=== PATIENT | female | born 1940 | race Caucasian/White ===

== ENCOUNTER 2022-02-02 12:50 | Inpatient (IN) ==
[2022-02-02] MEDS ORDERED: 0.9 % SODIUM CHLORIDE 1,000 ML IV ONE (12:54)
[2022-02-02] MEDS ORDERED: LACTATED RINGERS 1,000 ML IV ONE (13:16)
--- NOTE | 2022-02-02 13:22 | Emergency Department Note ---
Back Pain HPI <Jimmie Parekh PA-C - Last Filed: 02/02/22 15:03> General Chief Complaint: Back Pain/Injury Stated Complaint: back pain Time Seen by Provider: 02/02/22 12:52 Source: patient Limitations: no limitations History of Present Illness HPI Narrative: Narrative: 81-year-old female with a history of osteoporosis with multiple pathologic compression fractures, hypertension, CHF, A. fib with RVR, COPD, GERD, opioid- induced constipation and sleep apnea. She states over the last week she was increasingly constipated. She was drinking an oral enema solution that was cleaning her out. She states she has not been drinking of water and her pain has been so severe she has not been eating. She was scheduled for vertebroplasty yesterday but she was in so much pain she could not make it to the appointment. She went for her reschedule appointment for vertebroplasty today with Dr. Steele. When she arrived Dr. Acosta said she looked very dehydrated and ill-appearing and he did not feel like she would be able to survive the procedure and she would need IV fluids and reevaluation. She is in considerable pain at this time. She says she is in so much pain that if this procedure does not get done that she will take her own life. She says life is not worth living in this kind of pain. She is objectively miserable. She denies fever, chills, nausea, vomiting, chest pain, chest pressure, abdominal p ain, dysuria, urgency, frequency, loss of bowel or bladder or lower extremity weakness. She does not have sciatic-like pain it is just throbbing miserable pain in her low back. She states she is no longer constipated and she is had many accidents after drinking oral solution. Related Data Home Medications Medication Instructions Recorded Confirmed aspirin 81 mg tablet,delayed 81 mg PO QDAY 12/18/21 02/02/22 release albuterol sulfate 90 mcg/actuation 1 inh INHALATION ONCE 01/06/22 02/02/22 aerosol inhaler apixaban 5 mg tablet (Eliquis) 5 mg PO BID 01/06/22 02/02/22 prednisone 10 mg tablet See Rx Instructions PO QDAY tab 01/28/22 02/02/22 docusate sodium 100 mg capsule 100 mg PO BID 02/02/22 02/02/22 (Colace) metoprolol tartrate 50 mg tablet 1.5 tab PO BID 02/02/22 02/02/22 sennosides 8.6 mg tablet (Grace-luis) 8.6 mg PO BID 02/02/22 02/02/22 Previous Rx's Medication Instructions Recorded Bipap mask and supplies #1 ea 04/21/20 Nebulizer and supplies #1 ea 04/21/20 ipratropium 0.5 mg-albuterol 3 mg See Rx Instructions .ROUTE 07/07/21 (2.5 mg base)/3 mL nebulization .COMPLEX #1080 unknown measurement soln unit code: ml spironolactone 25 mg tablet 50 mg PO QAM #180 tab 11/24/21 Home care Hospital bed #1 ea 01/05/22 calcitonin (salmon) 200 1 spray INTRANASAL (ALT) ONCE #3.7 01/21/22 unit/actuation nasal spray ml hydrocodone 10 mg-acetaminophen 1 tab PO Q4-6H PRN #180 tab 01/21/22 325 mg tablet Allergies Allergy/AdvReac Type Severity Reaction Status Date / Time codeine Allergy Intermediate Nausea Verified 02/02/22 12:54 morphine Allergy Intermediate Nausea Verified 02/02/22 12:54 Review of Systems <Jimmie Parekh PA-C - Last Filed: 02/02/22 15:03> ROS ROS Narrative: Narrative: All systems ED: reviewed and negative except as stated. PFSH <Jimmie Parekh PA-C - Last Filed: 02/02/22 15:03> Narrative Patient History Narrative: Narrative: Medical/Surgical/Family History All Active Problems (Updated 02/02/22 @ 15:31 by Panda Harmon MD) Compression fracture of lumbar vertebra (Acute) Intractable back pain (Acute) Dehydration (Acute) Malnutrition (Acute) Age-related osteoporosis with current pathological fracture, vertebra(e), initial encounter for fracture (Acute) Acute exacerbation of chronic low back pain (Acute) Hypertension (Chronic) CHF (congestive heart failure) (Acute) Atrial fibrillation with rapid ventricular response (Acute) Congestive heart failure (Acute) Compression fracture of L5 vertebra (Acute) Hepatitis A (Chronic) Heart palpitations (Chronic) SOB (shortness of breath) (Chronic) Sacral pain (Chronic) Other low back pain (Chronic) Spinal stenosis (Chronic) Back pain (Chronic) Anterolisthesis of lumbosacral spine (Chronic) Chest wall contusion (Chronic) Neck Pain (Chronic) Muscle spasm of back (Chronic) Low back strain (Chronic) Initial Medicare annual wellness visit (Chronic) GERD (gastroesophageal reflux disease) (Chronic) Duodenal bulb ulcer (Chronic) Gastric ulcer (Chronic) Flank pain (Chronic) Drug induced constipation (Chronic) Fatigue (Chronic) Hyperlipidemia (Chronic) Chronic bronchitis with COPD (chronic obstructive pulmonary disease) (Chronic) Iliac artery stenosis, right (Chronic) Atherosclerosis of lower extremity with claudication (Chronic) Symptomatic stenosis of right carotid artery (Chronic 06/14/16) Ovarian mass, right (Chronic) Sleep apnea (Chronic) Diverticulosis (Chronic) Peripheral vascular disease (Chronic) COPD (chronic obstructive pulmonary disease) (Chronic) Medical History Age-related osteoporosis with current pathological fracture, vertebra(e), initial encounter for fracture Anterolisthesis of lumbosacral spine Atherosclerosis of lower extremity with claudication Back pain Chest wall contusion Chronic bronchitis with COPD (chronic obstructive pulmonary disease) COPD (chronic obstructive pulmonary disease) Diverticulosis Drug induced constipation Duodenal bulb ulcer Fatigue Flank pain Gastric ulcer GERD (gastroesophageal reflux disease) Heart palpitations Hepatitis A Hyperlipidemia Hypertension Iliac artery stenosis, right severe Low back strain Muscle spasm of back Neck Pain Other low back pain Ovarian mass, right with elevated OVL 1 Peripheral vascular disease Sacral pain Sleep apnea SOB (shortness of breath) Spinal stenosis Symptomatic stenosis of right carotid artery (06/14/16) Surgical History History of angioplasty (11/01/16) Right external iliac artery and stent placement. Pelvis angiogram and bilateral common femoral artery access under US guidance History of colonoscopy (08/19/14) History of hysterectomy History of knee surgery History of right-sided carotid endarterectomy Hx of cataract surgery Family History Brother COPD (chronic obstructive pulmonary disease) Mother Pneumonia Social History Smoking Status: Current some day smoker Alcohol Intake Frequency: does not drink Substance Use: does not use Exam <Jimmie Parekh PA-C - Last Filed: 02/02/22 15:03> Narrative Narrative: Narrative: Gen: Patient is ill and dehydrated appearing complaining of back pain Eyes: PERRL, mild conjunctival irritation, and symmetrical lids. Sclerae non icteric HENMT: Normocephalic Atraumatic head, external nose and ears. Severely dry MM. CVS: +S1/S2, No murmurs or gallops. Radial pulses 2+ and equal bilat. No swelling RESP: Unlabored respiratory effort . Clear to auscultation bilaterally (CTAB). No noted wheezes rales or ronchi. GI: Nontender/Nondistended (NTND), No focal tenderness MSK: Extremities w/o deformity or ttp. No cyanosis or clubbing. Back: Severe low back pain Skin: Dry with significant skin turgor. No rashes or lesions . Cap refill less than 2. Neuro: Patient denies bowel or bladder incontinence or saddle anesthesia, she can extend legs from the wheelchair and plantar and dorsiflex. Psych: Awake, Alert, & Oriented (AAO) x3. Patient is miserable and in severe pain. Depressed affect. General Limitations: no limitations Course <Jimmie Parekh PA-C - Last Filed: 02/02/22 15:03> Vital Signs Vital signs: Vital Signs Temperature 98.8 F 02/02/22 12:50 Pulse Rate 111 H 02/02/22 12:50 Respiratory Rate 16 02/02/22 12:50 Blood Pressure 151/69 02/02/22 12:50 Pulse Oximetry (%) 93 02/02/22 12:50 Temperature 97.0 F 02/03/22 07:17 Pulse Rate 84 02/03/22 07:17 Respiratory Rate 20 02/03/22 07:17 Blood Pressure 150/61 02/03/22 07:17 Pulse Oximetry (%) 98 02/03/22 07:17 MDM <Jimmie Parekh PA-C - Last Filed: 02/02/22 15:03> [facility] Narrative Medical decision making narrative: Narrative: Patient is in such severe pain that she wants to take her own life. She is dehydrated and has not been eating or drinking. She is scheduled for vertebroplasty which was canceled today due to her dehydration and current con dition. She will be evaluated with a chest x-ray, EKG, CBC, CMP and a UA at this time. We will give her Dilaudid for pain and IV fluids. She will likely need to be admitted for pain control. CBC: Macrocytosis otherwise unremarkable CMP: Decreased protein otherwise unremarkable EKG: Atrial fibrillation significant artifact from patient shaking at a rate of 109 bpm, skulls ST depression in the lateral leads which is likely due to artifact, final believe this is due to acute ischemia at this time. Chest x-ray: Moderate to severe emphysema UA: Spoke with Dr. Harmon on the phone who graciously agreed to admit the patient, rehydrate, pain control and give nutrition and hopefully schedule her with Dr. Steele for the vertebroplasty and placement to senior living so she can recover before she goes home. Lab Data Result diagrams: 02/02/22 13:16 02/02/22 13:16 Labs: Lab Results 02/02/22 02/02/22 Range/Units 13:16 13:16 WBC 9.9 (4.5-11.0) K/mcL RBC 3.55 L (3.59-5.38) M/mcL Hgb 11.5 (11.2-15.7) g/dL Hct 36.3 (34.1-44.9) % MCV 102.3 H (80.0-100.0) fL MCH 32.4 (26.0-34.0) pg MCHC 31.7 (31.0-36.0) g/dL RDW 17.2 H (11.5-14.5) % Plt Count 266 (140-440) K/mcL MPV 8.9 (7.4-10.4) fL Immature Gran % (Auto) 1.0 H (0.0-0.5) % Neut % (Auto) 87.8 H (38.0-78.0) % Lymph % (Auto) 4.5 L (15.5-49.0) % [place] % (Auto) 6.3 (1.0-12.0) % Eos % (Auto) 0.2 (0.0-7.0) % Baso % (Auto) 0.2 (0.0-2.0) % Lymph # (Auto) 0.45 L (1.50-4.80) K/mcL [place] # (Auto) 0.62 (0.10-0.90) K/mcL Eos # (Auto) 0.02 (0.00-0.70) K/mcL Baso # (Auto) 0.02 (0.00-0.30) K/mcL Immature Gran # 0.10 H (0.00-0.05) K/mcl Absolute Neutrophils 8.79 H (1.80-8.00) K/mcL Sodium 143 (133-145) mmol/L Potassium 3.5 (3.3-5.1) mmol/L Chloride 103 (96-108) mmol/L Carbon Dioxide 28 (22-30) mmol/L Anion Gap 12.0 (8.0-16.0) BUN 9 (8-23) mg/dL Creatinine 0.9 (0.6-1.1) mg/dL GFR Calculation 61 Glucose 129 H (70-105) mg/dL Calcium 9.2 (8.6-10.4) mg/dL Total Bilirubin 0.9 (0.1-1.0) mg/dL AST 11 (<32) U/L ALT 14 (<40) U/L Alkaline Phosphatase 65 (39-117) U/L Total Protein 5.5 L (5.9-8.4) gm/dL Albumin 3.6 (3.2-5.2) gm/dL Globulin 1.9 L (2.2-3.7) gm/dL Albumin/Globulin Ratio 1.9 (1.0-2.3) Discharge Plan Patient/Caregiver Discharge Instructions Pt seen by EXTERN/PA only: Yes Clinical Impression: Intractable back pain, Dehydration, Malnutrition Patient Disposition: Xfer As Inpt ([facility]) Condition: Fair Discharge Date/Time: 02/02/22 15:34
[2022-02-02] MEDS: HYDROmorphone 0.5 MG/0.5 ML SYRINGE IV PRN ×5 (13:27→21:16)
[2022-02-02 13:59] LABS: Basophils # (Auto) 0.02 K/mcL (0.00-0.30); Basophils % (Auto) 0.2 % (0.0-2.0); Eosinophils # (Auto) 0.02 K/mcL (0.00-0.70); Eosinophils % (Auto) 0.2 % (0.0-7.0); Hematocrit 36.3 % (34.1-44.9); Hemoglobin 11.5 g/dL (11.2-15.7); Lymphocytes # (Auto) 0.45 K/mcL (1.50-4.80); Lymphocytes % (Auto) 4.5 % (15.5-49.0); Mean Cell Volume 102.3 fL (80.0-100.0); Mean Corpuscular HGB Conc 31.7 g/dL (31.0-36.0); Mean Platelet Volume 8.9 fL (7.4-10.4); Monocytes # (Auto) 0.62 K/mcL (0.10-0.90); Monocytes % (Auto) 6.3 % (1.0-12.0); Neutrophils % (Auto) 87.8 % (38.0-78.0); Platelet Count 266 K/mcL (140-440); RBC 3.55 M/mcL (3.59-5.38); Red Cell Distribution Width 17.2 % (11.5-14.5); WBC 9.9 K/mcL (4.5-11.0)
[2022-02-02 14:18] LABS: ALT/SGPT 14 U/L (<40); AST/SGOT 11 U/L (<32); Albumin 3.6 gm/dL (3.2-5.2); Albumin/Globulin Ratio 1.9 (1.0-2.3); Alkaline Phosphatase 65 U/L (39-117); Bilirubin,Total 0.9 mg/dL (0.1-1.0); Blood Urea Nitrogen 9 mg/dL (8-23); Calcium 9.2 mg/dL (8.6-10.4); Carbon Dioxide 28 mmol/L (22-30); Chloride 103 mmol/L (96-108); Globulin 1.9 gm/dL (2.2-3.7); Glomerular Filtration Rate 61; Glucose 129 mg/dL (70-105)
--- NOTE | 2022-02-02 14:38 | XRay Report ---
HISTORY: Chest and back pain FINDINGS: Patient has moderately severe emphysema. This is better demonstrated on recent chest CT done on 12/21/21. No evidence of pneumonia or pulmonary mass. No congestive heart failure or pleural effusion are present. The heart is mildly enlarged. Some of the apparent cardiomegaly is due to magnification by portable technique and prominent epicardial fat pad seen on the prior chest CT. The aorta is normal in caliber and there is no widening of the mediastinum. IMPRESSION: Moderately severe emphysema Mild cardiomegaly Interpreted and Authenticated by: Dipak Gore 02/02/22
--- NOTE | 2022-02-02 15:33 | Internal Med History&Physical ---
HPI History of Present Illness Patient information: Note initiated : 02/02/22 at 3:24 pm Service Date, if different from initiated Date: [] Patient: Renay Mata a 81 y/o F admitted on for back pain. Chief Complaint: [back pain] Chief complaint: back pain History of present illness: Ms. Mata is a 81 year old F history of osteoporosis with multiple lumbar spinal compression fracture, CHF, COPD, atrial fibrillation, essential hypertensions, GERD, obstructive sleep apnea on BiPAP, presenting with chronic back pain. She was supposed to have an appointment with Dr. Pineda anesthesiologist for vertebroplasty, where he thought that the patient was too dehydrated and was in a fair best shape to receive the procedures. Instead, he referred patients to our ED for further evaluations. He would like the patient to be rehydrated and for better pain control and have the procedures to be scheduled for potentially tomorrow. Patient is currently company of 10 out of 10 sharp constant lower back pain. She also is complaining of constipation with last bowel movement 2 days ago. She denies any difficulty urinating. She has a poor appetite and is also feeling generally weak. Labs within normal limits. A recent CT of the lumbar spine showing multiple lumbar spinal cord compression fractures. Constitutional Constitutional: Absent chills, excessive sweating, fatigue, fever(s) or weakness EENT Eyes: Absent blurry vision, change in vision, loss of vision or other visual disturbances Ears: Absent decreased hearing or tinnitus Nose, mouth and throat: Absent abnormal hearing, dry mouth, headache(s), nasal congestion or sore throat Cardiovascular Cardiovascular: Absent chest pain, chest pain at rest, edema, irregular heart rhythm or palpatations Respiratory Respiratory: Absent cough, dyspnea or wheezing Gastrointestinal Gastrointestinal: Present constipation; Absent abdominal pain, diarrhea, nausea or vomiting Musculoskeletal Musculoskeletal: Present back pain; Absent deformity, limited range of motion, muscle cramps, muscle weakness or numbness Integumentary Integumentary: Absent lesions, rash or wounds Neurological Neurological: Absent focal weakness, headache(s) or numbness Psychiatric Psychiatric: Absent anxiety, depression or hallucinations PFSH PFSH All Active Problems (Updated 02/02/22 @ 15:31 by Panda Harmon MD) Compression fracture of lumbar vertebra (Acute) Intractable back pain (Acute) Dehydration (Acute) Malnutrition (Acute) Age-related osteoporosis with current pathological fracture, vertebra(e), initial encounter for fracture (Acute) Acute exacerbation of chronic low back pain (Acute) Hypertension (Chronic) CHF (congestive heart failure) (Acute) Atrial fibrillation with rapid ventricular response (Acute) Congestive heart failure (Acute) Compression fracture of L5 vertebra (Acute) Hepatitis A (Chronic) Heart palpitations (Chronic) SOB (shortness of breath) (Chronic) Sacral pain (Chronic) Other low back pain (Chronic) Spinal stenosis (Chronic) Back pain (Chronic) Anterolisthesis of lumbosacral spine (Chronic) Chest wall contusion (Chronic) Neck Pain (Chronic) Muscle spasm of back (Chronic) Low back strain (Chronic) Initial Medicare annual wellness visit (Chronic) GERD (gastroesophageal reflux disease) (Chronic) Duodenal bulb ulcer (Chronic) Gastric ulcer (Chronic) Flank pain (Chronic) Drug induced constipation (Chronic) Fatigue (Chronic) Hyperlipidemia (Chronic) Chronic bronchitis with COPD (chronic obstructive pulmonary disease) (Chronic) Iliac artery stenosis, right (Chronic) Atherosclerosis of lower extremity with claudication (Chronic) Symptomatic stenosis of right carotid artery (Chronic 06/14/16) Ovarian mass, right (Chronic) Sleep apnea (Chronic) Diverticulosis (Chronic) Peripheral vascular disease (Chronic) COPD (chronic obstructive pulmonary disease) (Chronic) Medical History Age-related osteoporosis with current pathological fracture, vertebra(e), initial encounter for fracture Anterolisthesis of lumbosacral spine Atherosclerosis of lower extremity with claudication Back pain Chest wall contusion Chronic bronchitis with COPD (chronic obstructive pulmonary disease) COPD (chronic obstructive pulmonary disease) Diverticulosis Drug induced constipation Duodenal bulb ulcer Fatigue Flank pain Gastric ulcer GERD (gastroesophageal reflux disease) Heart palpitations Hepatitis A Hyperlipidemia Hypertension Iliac artery stenosis, right severe Low back strain Muscle spasm of back Neck Pain Other low back pain Ovarian mass, right with elevated OVL 1 Peripheral vascular disease Sacral pain Sleep apnea SOB (shortness of breath) Spinal stenosis Symptomatic stenosis of right carotid artery (06/14/16) Surgical History History of angioplasty (11/01/16) Right external iliac artery and stent placement. Pelvis angiogram and bilateral common femoral artery access under US guidance History of colonoscopy (08/19/14) History of hysterectomy History of knee surgery History of right-sided carotid endarterectomy Hx of cataract surgery Family History Brother COPD (chronic obstructive pulmonary disease) Mother Pneumonia Social History marital status: education level: college occupational status: retired smoking status: Former smoker quit date: 08/08/15 pack-years: 60 alcohol intake frequency: does not drink substance use type: does not use seatbelt use: always MEDS/ALLERGIES Home Medications and Allergies Home Medications Medication Instructions Recorded Confirmed Type Bipap mask and supplies #1 ea 04/21/20 01/21/22 Rx Nebulizer and supplies #1 ea 04/21/20 01/21/22 Rx ipratropium 0.5 mg-albuterol 3 mg See Rx Instructions .ROUTE 07/07/21 01/21/22 Rx (2.5 mg base)/3 mL nebulization .COMPLEX #1080 unknown measurement soln unit code: ml ondansetron 4 mg disintegrating 4 mg PO Q8H PRN #40 tab 11/16/21 01/21/22 Rx tablet spironolactone 25 mg tablet 50 mg PO QAM #180 tab 11/24/21 01/21/22 Rx aspirin 81 mg tablet,delayed 81 mg PO QDAY 12/18/21 01/21/22 History release [facility] Hospital bed #1 ea 01/05/22 01/21/22 Rx albuterol sulfate 90 mcg/actuation 1 inh INHALATION ONCE 01/06/22 01/21/22 History aerosol inhaler apixaban 5 mg tablet (Eliquis) 5 mg PO BID 01/06/22 01/21/22 History simvastatin 20 mg tablet 20 mg PO QHS #90 tab 01/14/22 01/21/22 Rx famotidine 20 mg tablet 20 mg PO QDAY #30 tab 01/15/22 01/21/22 Rx calcitonin (salmon) 200 1 spray INTRANASAL (ALT) ONCE #3.7 01/21/22 01/21/22 Rx unit/actuation nasal spray ml hydrocodone 10 mg-acetaminophen 1 tab PO Q4-6H PRN #180 tab 01/21/22 01/21/22 Rx 325 mg tablet lisinopril 5 mg tablet 5 mg PO QDAY tab 01/28/22 01/28/22 History magnesium hydroxide 400 mg (170 mg mg PO 01/28/22 01/28/22 History magnesium) chewable tablet prednisone 10 mg tablet See Rx Instructions PO QDAY tab 01/28/22 History Allergies Allergy/AdvReac Type Severity Reaction Status Date / Time codeine Allergy Intermediate Nausea Verified 02/02/22 12:54 morphine Allergy Intermediate Nausea Verified 02/02/22 12:54 EXAM Constitutional Vitals: Temp Pulse Resp BP Pulse Ox 37.1 C 109 H 16 125/58 97 02/02/22 12:50 02/02/22 14:25 02/02/22 12:50 02/02/22 15:01 02/02/22 14:25 General appearance: cooperative, disheveled and moderate distress Head Head exam: Present atraumatic and normocephalic Eye Eye exam: Present EOMI and PERRL ENT ENT exam: Present mucous membranes moist, normal exam and normal external ear exam Neck Neck exam: Present normal inspection; Absent lymphadenopathy, tenderness or thyromegaly Respiratory Respiratory exam: Absent accessory muscle use, respiratory distress or wheezes Cardiovascular Cardiovascular exam: Present irregular rhythm; Absent JVD GI/Abdominal GI/Abdominal exam: Present normal bowel sounds and soft; Absent organomegaly or tenderness Extremities Exam Extremities exam: Present full ROM, normal capillary refill and normal inspection; Absent tenderness Back Exam Back exam: Present normal inspection and vertebral tenderness Neurological Exam Neurological exam: Present alert, CN II-XII intact and oriented X3; Absent motor sensory deficit Psychiatric Psychiatric exam: Present normal affect and normal mood; Absent anxious or depressed Skin Skin exam: Present dry and intact DATA Data Completed and Pending Labs: Labs from last 24 hours 02/02/22 02/02/22 13:16 13:16 WBC 9.9 RBC 3.55 L Hgb 11.5 Hct 36.3 MCV 102.3 H MCH 32.4 MCHC 31.7 RDW 17.2 H Plt Count 266 MPV 8.9 Immature Gran % (Auto) 1.0 H Neut % (Auto) 87.8 H Lymph % (Auto) 4.5 L [place] % (Auto) 6.3 Eos % (Auto) 0.2 Baso % (Auto) 0.2 Lymph # (Auto) 0.45 L [place] # (Auto) 0.62 Eos # (Auto) 0.02 Baso # (Auto) 0.02 Immature Gran # 0.10 H Absolute Neutrophils 8.79 H Sodium 143 Potassium 3.5 Chloride 103 Carbon Dioxide 28 Anion Gap 12.0 BUN 9 Creatinine 0.9 GFR Calculation 61 Glucose 129 H Calcium 9.2 Total Bilirubin 0.9 AST 11 ALT 14 Alkaline Phosphatase 65 Total Protein 5.5 L Albumin 3.6 Globulin 1.9 L Albumin/Globulin Ratio 1.9 A/P Assessment and plan (1) CHF (congestive heart failure): Status: Acute (2) Atrial fibrillation with rapid ventricular response: Status: Acute (3) Compression fracture of lumbar vertebra: Status: Acute (4) GERD (gastroesophageal reflux disease): Status: Chronic Qualifiers: Esophagitis presence: without esophagitis Qualified Code(s): K21.9 - Gastro-esophageal reflux disease without esophagitis (5) COPD (chronic obstructive pulmonary disease): Status: Chronic Qualifiers: COPD type: unspecified COPD Qualified Code(s): J44.9 - Chronic obstructive pulmonary disease, unspecified; J44.9 - Chronic obstructive pulmonary disease, unspecified; J44.9 - Chronic obstructive pulmonary disease, unspecified; J44.9 - Chronic obstructive pulmonary disease, unspecified (6) Hypertension: Status: Chronic Qualifiers: Hypertension type: essential hypertension Qualified Code(s): I10 - Essential (primary) hypertension; I10 - Essential (primary) hypertension; I10 - Essential (primary) hypertension (7) Sleep apnea: Status: Chronic Qualifiers: Sleep apnea type: obstructive Qualified Code(s): G47.33 - Obstructive sleep apnea (adult) (pediatric); G47.33 - Obstructive sleep apnea (adult) (pediatric) Narrative A/P Narrative: Assessment and Plans: 1. Multiple lumbar compression fracture secondary to osteoporosis: Observation med surg Consult Dr. Pineda for potential vertebroplasty tomorrow 02/03 Physical therapy Occupational therapy Toradol PRN mild pain Hamler PRN moderate pain Dilaudid IV PRN severe pain NPO after midnight, NS@100cc/hr 2. h/o CHF: Hold Aldactone, instead give NS@/100cc/hr in preparation for the vertebroplasty 3. h/o COPD: DuoNEB NEB PRN wheezing 4. Permanent atrial fibrillation: Currently rate controlled Hold Eliquis in preparation for the vertebroplasty 5. YELITZA on BiPAP: Continue BiPAP at night while sleeping 6. Essential hypertension: Lisinopril Hold Aldactone, instead give NS@/100cc/hr in preparation for the vertebroplasty 7. GERD: Continue Famotidine PO GI ppx: Continue Famotidine PO DVT ppx: SCDs Code statu: Full Prognosis: stable Disposition: observation med surg; PT OT Time Spent With Patient Time: Total time spent is greater than 50% in coordination of care (as documented) at patient's floor/unit and/or counseling patient: Total time spent with greater than 50% in coordination of care (as documented) at patient's floor/unit and/or counseling patient:: 35 - 50 minutes
[2022-02-02] MEDS ORDERED: IPRATROPIUM/ALBUTEROL 3 ML AMPUL.NEB NEB SCH (15:55)
[2022-02-02] MEDS ORDERED: ACETAMINOPHEN 325 MG TABLET PO PRN (15:55)
[2022-02-02] MEDS ORDERED: traZODone HCL 50 MG TABLET PO PRN (15:55)
[2022-02-02] MEDS ORDERED: ALBUTEROL SULFATE 200 PUFF INHALER INH PRN (15:55)
[2022-02-02] MEDS ORDERED: ONDANSETRON 4 MG/2 ML VIAL IV PRN (15:55)
[2022-02-02] MEDS: 0.9 % SODIUM CHLORIDE 1,000 ML IV SCH (16:05)
[2022-02-02] MEDS: IPRATROPIUM/ALBUTEROL 3 ML AMPUL.NEB NEB PRN ×2 (17:59→21:29)
[2022-02-02] MEDS ORDERED: hydrALAZINE 20 MG/ML VIAL IV PRN (19:53)
[2022-02-02] MEDS: 0.9 % SODIUM CHLORIDE 10 ML SYRINGE IV SCH (20:45)
[2022-02-02] MEDS ORDERED: [UNRECOGNIZED DRUG - OTHER] INTRANASAL SCH (21:00)
[2022-02-02 22:13] LABS: Appearance,Urine HAZY (Clear); Bilirubin,Urine Negative (Negative); Color,Urine YELLOW; Culture Indicated,Urine No; Glucose,Urine (UA) Negative (Negative); Ketones,Urine 5 mg/dL (Negative); Leukocyte Esterase,Urine Negative /uL (Negative); Mucus,Urine MOD /hpf; Nitrate,Urine Negative (Negative); Protein,Urine Negative (Negative); Urine Blood Negative (Negative); Urine Hyaline Cast 18 /lph (0-2); Urine RBC < 1 /hpf (0-3); Urine Squamous Epithelial Cell 0 /hpf (0-4); Urine WBC 4 /hpf (0-4); Urobilinogen,Urine Negative
[2022-02-02] MEDS: METOPROLOL TARTRATE 50 MG TABLET PO SCH (22:41)
[2022-02-02] MEDS: HYDROcodone/APAP 10/325MG TABLET PO PRN (22:41)
[2022-02-02] MEDS: SIMVASTATIN 20 MG TABLET PO SCH ×2 (22:41→22:49)
[2022-02-02] MEDS: DOCUSATE SODIUM 100 MG CAPSULE PO SCH (22:42)
[2022-02-02] MEDS: SENNOSIDES 1 TABLET PO SCH (22:42)
[2022-02-02] MEDS ORDERED: BACLOFEN 10 MG TABLET PO PRN (23:04)
[2022-02-03] MEDS: 0.9 % SODIUM CHLORIDE 1,000 ML IV SCH (02:17)
[2022-02-03] MEDS: IPRATROPIUM/ALBUTEROL 3 ML AMPUL.NEB NEB PRN ×2 (04:12→08:57)
[2022-02-03] MEDS: HYDROmorphone 0.5 MG/0.5 ML SYRINGE IV PRN ×6 (04:29→21:48)
[2022-02-03] MEDS: 0.9 % SODIUM CHLORIDE 10 ML SYRINGE IV SCH ×3 (04:30→21:58)
[2022-02-03] MEDS ORDERED: IPRATROPIUM/ALBUTEROL 3 ML AMPUL.NEB NEB PRN (08:50)
[2022-02-03] MEDS: KETOROLAC 30 MG/ML VIAL IV PRN ×2 (08:55→23:00)
[2022-02-03] MEDS ORDERED: FAMOTIDINE 20 MG TABLET PO SCH (09:00)
[2022-02-03] MEDS ORDERED: LISINOPRIL 5 MG TABLET PO SCH (09:00)
[2022-02-03] MEDS ORDERED: 0.9 % SODIUM CHLORIDE 1,000 ML IV SCH (09:00)
--- NOTE | 2022-02-03 09:03 | Internal Med Progress Note ---
SUBJECTIVE Subjective Patient information: Note initiated : 02/03/22 at 9:02 am Service Date, if different from initiated Date: [] Patient: Renay Mata a 81 y/o F admitted on 02/02/22 for back pain. Chief Complaint: [] Interval history: History of present illness: Ms. Mata is a 81 year old F history of osteoporosis with multiple lumbar spinal compression fracture, CHF, COPD, atrial fibrillation, essential hypertensions, GERD, obstructive sleep apnea on BiPAP, presenting with chronic back pain. She was supposed to have an appointment with Dr. Pineda anesthesiologist for vertebroplasty, where he thought that the patient was too dehydrated and was in a fair best shape to receive the procedures. Instead, he referred patients to our ED for further evaluations. He would like the patient to be rehydrated and for better pain control and have the procedures to be scheduled for potentially tomorrow. Patient is currently company of 10 out of 10 sharp constant lower back pain. She also is complaining of constipation with last bowel movement 2 days ago. She denies any difficulty urinating. She has a poor appetite and is also feeling generally weak. Labs within normal limits. A recent CT of the lumbar spine showing multiple lumbar spinal cord compression fractures. 02/03: Increased work of breathing this morning. Patient was saturating in the 50s on 3 L of oxygen's. We increased her oxygen to 15L/min and her oxygen saturations back to the mid 90s. Subjective ROS not obtained due to patient's clinical situations. Will order ABG and CT angiogram of the chest to rule out pulmonary embolism as a cause of increased work of breathing. We will postpone the vertebroplasty to at least tomorrow. Constitutional Vitals: Vital Signs Temp Pulse Resp BP Pulse Ox 36.1 C 95 H 30 H 150/61 75 L 02/03/22 07:17 02/03/22 08:58 02/03/22 08:58 02/03/22 07:17 02/03/22 08:58 Period Temp Pulse Resp BP Sys/Urban Pulse Ox Last 24 Hr 36.1 C-37.1 C 81-143 14-30 125-170/58-84 75-99 Intake and Output 02/02/22 02/03/22 02/03/22 21:59 05:59 13:59 Intake Total 1000 1120 Output Total 800 1 Balance 200 1119 Weight 66.769 kg Intake & Output: Intake & Output 02/02/22 02/03/22 02/03/22 21:59 05:59 13:59 Intake Total 1000 1120 Output Total 800 1 Balance 200 1119 Weight 66.769 kg Intake: IV 1000 1000 Sodium Chloride 0.9% 1,000 ml @ 1000 100 mls/hr IV .Q10H PO Rx#: [id number] Lactated Ringers 1,000 ml @ 1000 Wide Open IV BOLUS ONE Rx#: [id number] Oral 120 Output: Urine Catheter Amount 800 Straight 800 Void Amount 0 # of times incontinent of urine 1 Other: Urine Appearance Straight Clear Urine Color Straight Bright Yellow Stool Size Smear Small Stool Color Brown Brown Stool Consistency Soft Loose Loose # Voids 0 # Bowel Movements 0 # of times incontinent of 1 1 Bowels General appearance: average body habitus and moderate distress Head Head exam: Present atraumatic and normal inspection Eye Eye exam: Present normal appearance ENT ENT exam: Present mucous membranes moist, normal exam and normal external ear exam Additional comments: Oxygen mask in place Neck Neck exam: Present normal inspection Respiratory Respiratory exam: Present decreased breath sounds Cardiovascular Cardiovascular exam: Present irregular rhythm GI/Abdominal GI/Abdominal exam: Present normal bowel sounds Back Exam Back exam: Present normal inspection and vertebral tenderness Neurological Exam Neurological exam: Present alert and oriented X3 Skin Skin exam: Present intact and warm OBJ DATA Labs CBC & Chem 7: 02/02/22 13:16 02/02/22 13:16 Labs: Abnormal Lab Results 02/02/22 02/02/22 02/02/22 21:15 13:16 13:16 RBC 3.55 L MCV 102.3 H RDW 17.2 H Immature Gran % (Auto) 1.0 H Neut % (Auto) 87.8 H Lymph % (Auto) 4.5 L Lymph # (Auto) 0.45 L Immature Gran # 0.10 H Absolute Neutrophils 8.79 H Glucose 129 H Total Protein 5.5 L Globulin 1.9 L Urine Appearance Hazy A Urine Ketones 5 A Hyaline Casts 18 H Urine Mucus Mod A Meds: Medications Acetaminophen (Acetaminophen 325 Mg Tablet) 650 mg PO Q6HP PRN; Protocol PRN Reason: Per Pain Protocol/Fever > 101 Hydrocodone Bitart/Acetaminophen (Hydrocodone/Apap 10/325mg Tablet) 1 tab PO Q4HP PRN; Protocol PRN Reason: pain Last Admin: 02/02/22 22:41 Dose: 1 tab Documented by: Albuterol Sulfate (Albuterol Sulfate 200 Puff Inhaler) 2 puff INH Q4HP PRN PRN Reason: Shortness Of Breath Albuterol/Ipratropium (Ipratropium/Albuterol 3 Ml Ampul.Neb) 3 ml NEB Q4HRT PRN PRN Reason: Wheezing Last Admin: 02/03/22 08:57 Dose: 3 ml Documented by: Albuterol/Ipratropium (Ipratropium/Albuterol 3 Ml Ampul.Neb) 3 ml NEB ONCE PRN PRN Reason: Shortness Of Breath Baclofen (Baclofen 10 Mg Tablet) 10 mg PO Q6HP PRN PRN Reason: Muscle Spasticity Docusate Sodium (Docusate Sodium 100 Mg Capsule) 100 mg PO BID [facility] Last Admin: 02/02/22 22:42 Dose: Not Given Documented by: Famotidine (Famotidine 20 Mg Tablet) 20 mg PO QDAY [facility] Hydralazine HCl (Hydralazine 20 Mg/Ml Vial) 10 mg IV Q4-6HP PRN PRN Reason: Hypertension Hydromorphone HCl (Hydromorphone 0.5 Mg/0.5 Ml Syringe) 0.5 mg IV Q1HP PRN; Protocol PRN Reason: Per Pain Protocol Last Admin: 02/03/22 08:46 Dose: 0.5 mg Documented by: Sodium Chloride (Sodium Chloride 0.9%) 1,000 mls @ 100 mls/hr IV .Q10H [facility] Last Admin: 02/03/22 02:17 Dose: 100 mls/hr Documented by: Sodium Chloride (Sodium Chloride 0.9%) 1,000 mls @ 0 mls/hr IV .Q0M [facility] Ketorolac Tromethamine (Ketorolac 30 Mg/Ml Vial) 30 mg IV Q6HP PRN; Protocol PRN Reason: Per Pain Protocol Stop: 02/04/22 15:13 Last Admin: 02/03/22 08:55 Dose: 30 mg Documented by: Magnesium Oxide (Magnesium Oxide 400 Mg Tablet) 400 mg PO DAILY [facility] Metoprolol Tartrate (Metoprolol Tartrate 50 Mg Tablet) 75 mg PO BID [facility] Last Admin: 02/02/22 22:41 Dose: 75 mg Documented by: Ondansetron HCl (Ondansetron 4 Mg/2 Ml Vial) 4 mg IV Q6HP PRN PRN Reason: Nausea And Vomiting Senna (Sennosides 1 Tablet) 2 tab PO HS [facility] Last Admin: 02/02/22 22:42 Dose: Not Given Documented by: Simvastatin (Simvastatin 20 Mg Tablet) 20 mg PO QHS [facility] Last Admin: 02/02/22 22:49 Dose: Not Given Documented by: Sodium Chloride (0.9 % Sodium Chloride 10 Ml Syringe) 10 ml IV Q8 [facility] Last Admin: 02/03/22 04:30 Dose: 10 ml Documented by: Trazodone HCl (Trazodone Hcl 50 Mg Tablet) 25 mg PO HSP PRN PRN Reason: Insomnia A/P Assessment and plan (1) CHF (congestive heart failure): Status: Acute (2) Atrial fibrillation with rapid ventricular response: Status: Acute (3) Compression fracture of lumbar vertebra: Status: Acute (4) GERD (gastroesophageal reflux disease): Status: Chronic Qualifiers: Esophagitis presence: without esophagitis Qualified Code(s): K21.9 - G sudeep-esophageal reflux disease without esophagitis (5) COPD (chronic obstructive pulmonary disease): Status: Chronic Qualifiers: COPD type: unspecified COPD Qualified Code(s): J44.9 - Chronic obstructive pulmonary disease, unspecified; J44.9 - Chronic obstructive pulmonary disease, unspecified; J44.9 - Chronic obstructive pulmonary disease, unspecified; J44.9 - Chronic obstructive pulmonary disease, unspecified (6) Hypertension: Status: Chronic Qualifiers: Hypertension type: essential hypertension Qualified Code(s): I10 - Essential (primary) hypertension; I10 - Essential (primary) hypertension; I10 - Essential (primary) hypertension (7) Sleep apnea: Status: Chronic Qualifiers: Sleep apnea type: obstructive Qualified Code(s): G47.33 - Obstructive sleep apnea (adult) (pediatric); G47.33 - Obstructive sleep apnea (adult) ( pediatric) Narrative A/P Narrative: Assessment and Plans: 1. Multiple lumbar compression fracture secondary to osteoporosis: Observation med surg Consult Dr. Pineda for potential vertebroplasty, postpone to at least tomorrow 02/04 Physical therapy Occupational therapy Toradol PRN mild pain Verner PRN moderate pain Dilaudid IV PRN severe pain NPO after midnight, saline lock 2. h/o CHF: Hold Aldactone, but also saline lock due to h/o CHF CT angiogram of the chest to rule out pulmonary embolism as a cause of increased work of breathing 3. h/o COPD: DuoNEB NEB PRN wheezing CT angiogram of the chest to rule out pulmonary embolism as a cause of increased work of breathing 4. Permanent atrial fibrillation: Currently rate controlled Hold Eliquis in preparation for the vertebroplasty 5. YELITZA on BiPAP: Continue BiPAP at night while sleeping 6. Essential hypertension: Lisinopril Hold Aldactone, but also saline lock due to h/o CHF 7. GERD: Continue Famotidine PO GI ppx: Continue Famotidine PO DVT ppx: SCDs Code statu: Full Prognosis: guarded Disposition: observation med surg; PT OT Time Spent With Patient Time: Total time spent is greater than 50% in coordination of care (as documented) at patient's floor/unit and/or counseling patient: Total time spent with greater than 50% in coordination of care (as documented) at patient's floor/unit and/or counseling patient:: 35 - 50 minutes QUALITY VTE Deep Vein Thrombosis/Pulmonary Embolism Present on Admission: No
[2022-02-03 09:17] LABS: POC Calcium, Ionized 1.19 (1.16-1.32); POC Creatinine 0.9 (0.6-1.2); POC Potassium 3.9 (3.3-5.1)
--- NOTE | 2022-02-03 09:22 | XRay Report ---
HISTORY: Dyspnea, back pain, emphysema FINDINGS: There is a diffuse alveolar infiltrate throughout the right lung with the greatest consolidation in the middle one third. This is superimposed upon underlying severe emphysema. The infiltrate is new since 02/02/22. The heart appears mildly enlarged but is magnified by portable technique. There is minor blunting of the right costophrenic sulcus which could be a tiny pleural effusion. IMPRESSION: Moderate pneumonia centrally in the right lung, superimposed upon underlying COPD Interpreted and Authenticated by: Dipak Gore 02/03/22
--- OUTSIDE RECORDS SUMMARY | 2022-02-03 09:48 | External Medical Summary ---
:1940 Author Care Team Providers Name Role Phone MASSIMO DEAN MD Primary Care Provider [phone] AGUILA Levine NACHREINER OTHER [phone] AMADA LUONG MD Journey Lineman [phone] URIEL ARAGON MD Advertising Operations Manager [phone] Allergies Code Code System Name Reaction Severity Status Onset 267 RxNorm Codeine Active 7052 RxNorm Morphine Active Medications Name Status Start Date Stop Date aspirin 81 mg tablet,delayed release Active Not available Take 1 tablet every day by oral route as directed for 365 days. azithromycin 250 mg tablet Active Not a vailable chlorthalidone 25 mg tablet Completed 12/07 Take 1 tablet every day by oral route as needed. clopidogrel 75 mg tablet Active Not devin ilable furosemide 20 mg tablet Active Not avai lable ipratropium 0.5 mg-albuterol 2.5 mg/2.5 mL solution for nebuliza tion Active Not available Inhale by inhalation route. lisinopril 5 mg tablet Active Not avail able Take 1 tablet every day by oral route as directed for 90 days. metoprolol tartrate 50 mg tablet Active Not available pantoprazole 40 mg tablet,delayed release Active Not available Take 1 tablet every day by oral route as directed for 90 days. potassium Active Not available daily prednisone 10 mg tablet Active Not avai lable simvastatin 20 mg tablet Active Not devin ilable spironolactone 25 mg tablet Active Not available tamsulosin 0.4 mg capsule Completed 2018 verapamil 120 mg tablet Active Not avai lable verapamil ER (SR) 120 mg tablet,extended release Completed 04/14/2021 Problems Name Status Onset Date Source Essential Hypertension Active 01/09/2019 Coronary Arteriosclerosis Active 01/09/2019 Atrial Fibrillation Active 01/09/2019 Chronic Obstructive Lung Disease Active 01/09/2019 Chronic Lung Disease Active 01/09/2019 Procedures Date Name Performed by Insertion of Abdominal Aorta Stent Infor mation not available Cyst Removal Information not avai lable Knee Surgery Information not avai lable Notes: LEFT Tonsillectomy Information not avai lable Removal of Ovary(s) Information not avai lable Hysterectomy Information not avai lable 02/15/2019 Electrocardiogram [facility] [address] [place] [id number] (Work Place) 01/02/2021 Electrocardiogram [facility] [address] [place] [phone] (Work Place) Results Lab Results None recorded. Past Encounters 02/10/2021 Paroxysmal Atrial Fibrillation; [facility] Hypertension; Mixed Hyperlipidemia Uriel Aragon MD: [address] [place] [address] , [place] [id number], Ph. 01/19/2021 Paroxysmal Atrial Fibrillation; [facility] Hypertension Uriel Aragon MD: [address] [place] [address] , [place] [id number], Ph. 01/02/2021 Paroxysmal Atrial Fibrillation; [facility] Hypertension Uriel Aragon MD: [address] [place] [address] , [place] [id number], Ph. Social History Tobacco Smoking Status Former Smoker Notes: Quit in 2014 1 PPD Vaccine List None recorded. Plan of Care Reminders Provider Appointments None recorded. Lab None recorded. Referral None recorded. Procedures None recorded. Surgeries None recorded. Imaging None recorded. Vitals 02/10/2021 03:30PM CARDIO-ESTABLISHED PATIENT Height Weight BMI Blood Pressure 5 ft 6 in 163 lbs 26.3 kg/m2 154/70 mm[Hg] 01/19/2021 04:00PM CARDIO-ESTABLISHED PATIENT Height Weight BMI Blood Pressure 5 ft 6 in 165 lbs 26.6 kg/m2 160/68 mm[Hg] 01/02/2021 03:15PM CARDIO- NEW PATIENT Height Weight BMI Blood Pressure 5 ft 6 in 163 lbs 26.3 kg/m2 164/50 mm[Hg] 02/15/2019 02:00PM Established Patient 30 Height Weight BMI Blood Pressure 5 ft 7 in 162.6 lbs 25.5 kg/m2 126/58 mm[Hg]
--- OUTSIDE RECORDS SUMMARY | 2022-02-03 09:48 | External Medical Summary | Continuity of Care Document ---
:1940 Author Organization [facility] Address [address] [place] [phone] Phone Care Team Providers Name Role Phone Filippo OD Unavailable Unavailable Allergies, Adverse Reactions, Alerts Substance Reaction Status Criticality morphine Unknown Active No Information codeine Unknown Active No Information Medications Medication Instructions Dosage Effective Status Comments Dates (start - stop) CLOPIDOGREL Not Available - Active (unknown strength) SPIRONOLACTONE Not Available - Active (unknown strength) ASPIRIN (unknown Not Available - Active strength) SIMVASTATIN Not Available - Active (unknown strength) PREDNISONE Not Available - Active (unknown strength) prednisolone (1st EYE) - No Longer Allow a n ew acetate 1 % eye Instill one drop Active pr escription for drops,suspension to right eye the sa me four times a medication(s ) day, until gone. for a stephen rgical Begin using procedure on the drops as second eye if instructed. within 30 day s of the first eye. Ok to substitute dexamethasone 0.1% or Durezo l 0.05%, QID unt il out. prednisolone (2nd EYE) - No Longer Allow a n ew acetate 1 % eye Instill one drop Active pr escription for drops,suspension to left eye four th e same times a day, medication(s ) until gone. for a surgica l Begin using procedure on the drops as second eye if instructed. within 30 day s of the first eye. Ok to substitute dexamethasone 0.1% or Durezo l 0.05%, QID unt il out. Procedures Procedure Date POSTOP FOLLOW UP VISIT DURING POSTOP FOLLOW UP VISIT DURING POSTOP FOLLOW UP VISIT DURING ANESTH, LENS SURGERY FACILITY FEE 14079 OPHTHALMIC BIOMETRY CATARACT SURGERY, COMPLEX POSTOP FOLLOW UP VISIT DURING POSTOP FOLLOW UP VISIT DURING ANESTH, LENS SURGERY FACILITY FEE 46891 OPHTHALMIC BIOMETRY OPHTHALMIC BIOMETRY CATARACT SURG W/IOL, 1 STAGE OPHTH DX IMAGING POST SEG; RETINA OFFICE/OUTPATIENT VISIT, NEW Advance Directives Directive Yes / No Effective Date File Name No Information Encounters Encounter Practice Location Reason(s) Diagnoses Date Provider Provide rs Description For Visit Copied on Encounter [facility] Combined forms of [place] Refer ring Cataract JAI age-related cataract, Brodie. Provider: [facility] left eyePresence of [address] [facility] intraocular lens , [facility] , [address], [address], [address] [place], [id number] [facility], , [place]. [place], [place], tel: [phone] . , [place] tel: tel: [phone] [facility] Combined forms of [place] Refer ring Cataract [place] age-related cataract, Brodie. Provider: [facility] left eyePresence of 0 [address] [facility] intraocular lens , [facility] , [address], [address], [address] [place], [id number] [facility], , [place]. [place], tel: [phone] . , [place] tel: tel: [phone] [facility] Combined forms of [place] Refer ring Cataract [place] age-related cataract, Brodie. Provider: [facility] left eyePresence of 0 [address] [facility] intraocular lens St, [facility] , [address], [address], [id number] [facility], , . [place], [place], tel: [phone] . , [place] tel: tel: [phone] [facility] Combined forms of Aug-0 [place] Refer ring Cataract [facility]CL[facility] ASC age-related cataract, Gurwinder. Provider: [facility] left eye 0 [address] [address] [facility] , [address], [address], [address], [place], [place], [place], [place], [place], [place], [phone] , [place]. . , [place] tel: tel: tel: [phone] [facility] Combined forms of Aug-0 PCLI Refer ring Cataract PCLI ASC age-related cataract, [place] Provider: [facility] left eye 0 ASC. [facility] [address], [place] , [address], [address] [place], [id number] [facility], , [place]. [place], tel:+ [phone] . , [place] tel: tel: [phone] [facility] Combined forms of Aug-0 Guzek Referr ing Cataract [place] age-related cataract, Erasmo. Provider: [facility] left eye 0 [address] [facility] Mario Violet P, , [address], [place] Garza, [place], , [place], [place] Santoro, [id number] [place], [id number] , [place]. [address] , tel:+ . tel: [phone] tel: [phone] [facility] Combined forms of Aug-0 Guzek Refer ring Cataract PCL[facility] ASC age-related cataract, Eramso. Provider: And Laser left eye 0 [address] [facility] , [address], [address], [facility], , [place], [place], [place], [phone] , [place]. . , [place] tel: tel: tel: [phone] [facility] Combined forms of [place] Refer ring Cataract [place] age-related cataract, Brodie. Provider: [facility] right eyePresence of [address] [place] [address] intraocular lens [facility] , [address], [address] [place], [id number] [facility], , . [place], [place], tel: [phone] . , [place] tel: tel: [phone] [facility] Combined forms of [place] Referr ing Cataract [place] age-related cataract, Gabrielle . Provider: [facility] right eyePresence of [address] [place] [address] intraocular lens [facility] , [address], [address], [address], [facility], . [place], [place], tel: [phone] . , [place] tel: tel: [phone] [facility] Combined forms of [place] Refer ring Cataract PCL[facility] ASC age-related cataract, Gurwinder. Provider: And Laser right eye 0 [address] [address] [facility] , [address], [address], [place], [place], [place], [place], [place], [place], [phone] , [place]. . , [place] tel: tel: tel: [phone] [facility] Combined forms of PCLI Refer ring Cataract PCLI ASC age-related cataract, 0- Jai Provider: And Laser right eye 0 ASC. [address] [facility] [address], [place] , [address], [address] [place], [id number] [place], , . [place], [place], tel: [phone] . , [place] tel: tel: [phone] [facility] Combined forms of Guzek Referr ing Cataract JAI age-related cataract, 0 Erasmo. Provider: [facility] right eye 0 [address] [facility] [place] Guzek P, , [address], [place], [place], , [place], [place], [place], [id number] [place], [id number] , [place]. [address] , tel: . tel: [phone] tel: [phone] [facility] Combined forms of Guzek Refer ring Cataract PCLI ASC age-related cataract, 0 Erasmo. Provider: And Laser right eye 0 [address] [facility] [place] , [address], [address], [place], [place], , [place], [place], [place], [phone] , [place]. . , [place] tel: tel: tel: [phone] OFFICE/OUTPA [facility] blurry Combined forms of Jan- [place] Referring TIENT VISIT, Cataract JAI vision age-related cataract, 0- Bill iel. Provider: NEW [facility] (chief bilateralHypertensive 0 [address] [facility] complaint) retinopathy, St, [place] , [address] hal[address] bilateralMyopia, [address], [address] (chief bilateral [place], [address], complaint) [id number] [facility], , [place], tel: [phone] . , [place] tel: tel: [phone] Family History Family Member Type Diagnosis Age At Onset No Information Payers Payer name Insurance type Covered constitution party ID Authorization(s ) GREG BS ID MED [employer] MB [id number] Social History Type Description Quantity Date Captured Comments Sex Female Smoking Status No Information Chief Complaint And Reason For Visit No Information Reason For Referral Reason For Referral No Information Plan Of Treatment Date Type Action Status Future Order: Radiology Order [facility] ([id number]), Sent on: Sent History Of Present Illness Encounter Date Complaint History Of Present I llness blurry vision The patient notes bl urry vision in the OU for the past 2 years. The onset was gradual and the symptom is constant. It affects near and distance vision and the condition is associa gurwinder with daily activities. The severity of the issu e is worsening. The patient reports her glasses don't wo rk well. halos The patient notes arauz los in the OU for the past 2 years. The onset was gradua l and the symptom is frequent. It affects near and dis tance vision and the condition is associated with brig ht lights. Functional Status Date Functional Assessment No Information Instructions Date Instruction Additional Informati on - Discussed cataracts with patient. Rel ated to Combined forms of Long discussion reviewing risks, age-rel ated cataract, bilateral benefits, alternatives of surgery. Discussed the possibility of glare, streaks, arcs and halos. Reviewed the need for Rx at all distances ie: near, intermediate & distance, as well as refractive endpoint. Discussed lens choices with patient. Patient defers specialty lens. Patient elects standard lens OU with emmetropic endpoint OU. Option of CE IOL OU, OD first. Patient wishes to proceed with surgery.Follow up care @ [facility]. Patient will return to local routine provider 5 wk. p-CE for spectacle update and for continued eye care. - Patient education on importance of Re lated to Hypertensive retinopathy, good blood pressure control and HTN bila teral effects on eye health. Stressed importance of routine visits w/ PCP.Baseline macular OCT performed today. - Patient wishes emmetropia target. Rel ated to Myopia, bilateral Discussed emmetropia target does not guarantee spectacle independence for distance. Rx may still be needed at distance and intermediate range. Stressed Rx will be needed for near tasks. Assessments Type Assessment Date No Information Patient Care Teams Name Effective Dates (start - stop) Status M embers No Information
[2022-02-03] MEDS ORDERED: IOPAMIDOL 100 ML BOTTLE IV ONE (09:55)
[2022-02-03 10:00] LABS: Basophils # (Auto) 0.04 K/mcL (0.00-0.30); Basophils % (Auto) 0.3 % (0.0-2.0); Eosinophils # (Auto) 0.12 K/mcL (0.00-0.70); Hematocrit 36.2 % (34.1-44.9); Hemoglobin 11.4 g/dL (11.2-15.7); Lymphocytes # (Auto) 1.58 K/mcL (1.50-4.80); Lymphocytes % (Auto) 13.8 % (15.5-49.0); Mean Corpuscular HGB Conc 31.5 g/dL (31.0-36.0); Mean Platelet Volume 8.8 fL (7.4-10.4); Monocytes # (Auto) 0.78 K/mcL (0.10-0.90); Monocytes % (Auto) 6.8 % (1.0-12.0); Platelet Count 290 K/mcL (140-440); RBC 3.48 M/mcL (3.59-5.38); Red Cell Distribution Width 17.7 % (11.5-14.5); WBC 11.5 K/mcL (4.5-11.0)
[2022-02-03 10:09] LABS: ALT/SGPT 16 U/L (<40); AST/SGOT 14 U/L (<32); Albumin 3.3 gm/dL (3.2-5.2); Albumin/Globulin Ratio 1.6 (1.0-2.3); Alkaline Phosphatase 64 U/L (39-117); Bilirubin,Total 0.6 mg/dL (0.1-1.0); Blood Urea Nitrogen 11 mg/dL (8-23); Calcium 8.7 mg/dL (8.6-10.4); Carbon Dioxide 25 mmol/L (22-30); Chloride 107 mmol/L (96-108); Glomerular Filtration Rate 61; Glucose 120 mg/dL (70-105)
--- NOTE | 2022-02-03 10:23 | Cat Scan Report ---
History: COPD with worsening shortness of breath chest and back pain and right side pulmonary infiltrates seen on chest x-ray TECHNIQUE: Following injection of intravenous nonionic contrast the chest was scanned during the pulmonary arterial phase from above the thoracic inlet to the adrenals. Sagittal, coronal and axial MIPS images were created. The radiation exposure was limited using dose reduction technology. FINDINGS: The pulmonary arteries are normal without evidence of emboli. The pulmonary arteries are normal in caliber. The aorta is normal in caliber. There is a large amount calcified plaque along the wall. There is no dissection or aneurysm. The heart size is normal. There is a moderate amount of atherosclerotic plaque in the left and right coronary arteries. Patient has an epicardial fat pad which makes the heart appear enlarged on the preceding portable chest x-ray. No pericardial effusion is present. There is a small layering right-sided pleural effusion and a tiny layering left-sided pleural effusion. There is mild atelectasis in the posterior basal segment right lower lobe. Severe emphysema is present throughout both lungs. There are giant bulla in the anterior basal segment of the right lower lobe. There is moderate bronchitis with bronchial wall thickening in the right lung involving all three lobes. The greatest bronchial wall thickening is near the latoya. There are also mildly prominent increased interstitial lung markings adjacent to the thickened bronchial lockhart due to inflammation. No lobar consolidation is present. There is apical scarring on the left side which is a chronic stable finding. No lung mass has developed. Spine has a moderate kyphotic curvature. There are bridging anterior spurs at multiple levels. There is no fracture or evidence of bone metastasis. IMPRESSION: Severe emphysema New onset bilateral pleural effusions, right greater than left. Moderate bronchitis in the right lung Advanced atherosclerotic disease Interpreted and Authenticated by: Dipak Gore 02/03/22
[2022-02-03] MEDS: DOCUSATE SODIUM 100 MG CAPSULE PO SCH ×2 (10:36→21:48)
[2022-02-03] MEDS: MAGNESIUM OXIDE 400 MG TABLET PO SCH (10:36)
[2022-02-03] MEDS ORDERED: diphenhydrAMINE 50 MG/ML VIAL IV PRN (11:12)
[2022-02-03] MEDS ORDERED: DEXAMETHASONE 10 MG/ML VIAL IV SCH (11:15)
[2022-02-03] MEDS: RACEPINEPHRINE 0.5 ML AMPUL.NEB NEB SCH ×3 (11:24→14:55)
[2022-02-03] MEDS ORDERED: diphenhydrAMINE 50 MG/ML VIAL ONE (11:26)
[2022-02-03] MEDS: METOPROLOL TARTRATE 50 MG TABLET PO SCH (11:57)
[2022-02-03] MEDS ORDERED: DILTIAZEM 25 MG/5 ML VIAL IV ONE (12:26)
--- NOTE | 2022-02-03 12:53 | EKG ---
[facility] Test Date: 2022-02-02 Pat Name: Renay Mata Department: ED Room: Gender: Female Sharepoint Consultant: : 1940 Requested By: Jimmie Parekh Order Number: [id number] Reading MD: Weston Gracia Measurements Intervals [place] Rate: 109 P: OR: QRS: 39 QRSD: 69 T: 86 QT: 315 QTc: 425 Interpretive Statements Sinus tachycardia Wandering baseline in multiple leades Electronically Signed On 02-03-2022 12:53:15 PDT by Weston Gracia /store/M0/[id number]
--- NOTE | 2022-02-03 12:58 | EKG ---
[facility] Test Date: 2022-02-03 Pat Name: Renay Mata Department: [facility] Room: 108 Gender: Female Digital Design Engineer: : 1940 Requested By: Panda Harmon Order Number: [id number] Reading MD: Weston Gracia Measurements Intervals [place] Rate: 110 P: [place]: QRS: 44 QRSD: 106 T: QT: 315 QTc: 427 Interpretive Statements Atrial fibrillation vs atrial flutter vs sinus tachycardia with ectopy Anteroseptal infarct, age indeterminate Artifact in lead(s) II,III,aVR,aVL,aVF,V1,V2,V3,V4,V5,V6 and baseline wander in lead(s) II,III,aVF,V1,V6 Electronically Signed On 02-03-2022 12:58:34 PDT by Weston Gracia /store/M0/[id number]/[id number]
[2022-02-03] MEDS ORDERED: DILTIAZEM 25 MG/5 ML VIAL IV SCH (14:10)
[2022-02-03] MEDS: LEVALBUTEROL 1.25 MG/3 ML AMPUL.NEB NEB PRN ×2 (14:21→20:06)
[2022-02-03] MEDS ORDERED: DILTIAZEM 125 MG in DEXTROSE 5% IN WATER 100 ML IV SCH (20:30)
[2022-02-03] MEDS ORDERED: METOPROLOL TARTRATE 50 MG TABLET PO SCH (21:00)
[2022-02-03] MEDS ORDERED: DILTIAZEM 125 MG/25 ML VIAL IV ONE (21:00)
[2022-02-03] MEDS: SIMVASTATIN 20 MG TABLET PO SCH (21:48)
[2022-02-03] MEDS: SENNOSIDES 1 TABLET PO SCH (21:57)
[2022-02-04] MEDS: LEVALBUTEROL 1.25 MG/3 ML AMPUL.NEB NEB PRN ×5 (00:48→16:20)
[2022-02-04] MEDS: HYDROmorphone 0.5 MG/0.5 ML SYRINGE IV PRN ×3 (03:59→13:24)
[2022-02-04] MEDS: 0.9 % SODIUM CHLORIDE 10 ML SYRINGE IV SCH ×3 (05:57→20:29)
[2022-02-04] MEDS ORDERED: DILTIAZEM 125 MG in DEXTROSE 5% IN WATER 100 ML IV PRN (07:00)
[2022-02-04] MEDS: METOPROLOL TARTRATE 50 MG TABLET PO SCH ×2 (08:40→20:29)
[2022-02-04] MEDS: DOCUSATE SODIUM 100 MG CAPSULE PO SCH ×2 (08:40→20:28)
[2022-02-04] MEDS: MAGNESIUM OXIDE 400 MG TABLET PO SCH (08:40)
[2022-02-04] MEDS: HYDROcodone/APAP 10/325MG TABLET PO PRN ×2 (10:24→15:03)
--- NOTE | 2022-02-04 10:37 | Internal Med Progress Note ---
SUBJECTIVE Subjective Patient information: Note initiated : 02/04/22 at 10:28 am Service Date, if different from initiated Date: [] Patient: Renay Mata a 81 y/o F admitted on 02/03/22 for back pain. Chief Complaint: [] Interval history: History of present illness: Ms. Mata is a 81 year old F history of osteoporosis with multiple lumbar spina l compression fracture, CHF, COPD, atrial fibrillation, essential hypertensions, GERD, obstructive sleep apnea on BiPAP, presenting with chronic back pain. She was supposed to have an appointment with Dr. Pineda anesthesiologist for vertebroplasty, where he thought that the patient was too dehydrated and was in a fair best shape to receive the procedures. Instead, he referred patients to our ED for further evaluations. He would like the patient to be rehydrated and for better pain control and have the procedures to be scheduled for potentially tomorrow. Patient is currently company of 10 out of 10 sharp constant lower back pain. She also is complaining of constipation with last bowel movement 2 days ago. She denies any difficulty urinating. She has a poor appetite and is also feeling generally weak. Labs within normal limits. A recent CT of the lumbar spine showing multiple lumbar spinal cord compression fractures. 02/03: Increased work of breathing this morning. Patient was saturating in the 50s on 3 L of oxygen's. We increased her oxygen to 15L/min and her oxygen saturations back to the mid 90s. Subjective ROS not obtained due to patient's clinical situations. Will order ABG and CT angiogram of the chest to rule out pulmonary embolism as a cause of increased work of breathing. We will postpone the vertebroplasty to at least tomorrow. 02/04: Patient's developed A. fib with heart rate up to the 140s yesterday evening so I transferred the patient to ICU and placed the order for Cardizem drip but the drip was never started she got her heart rate controlled it with IV Cardizem pushes. Patient is continue to be on BiPAP last night and this morning during the day. With she had a small bowel movement earlier during the morning but she is still complaining of feeling constipated. She is also complaining of moderate shortness of breath with respiratory wheezings. She is also complaining of severe back pain. I touched base with pain surgeon Dr. Pineda, who stated that the patient's need to be off the BiPAP during the day because she need to be in the prone positions during and after her surgery. She also need to be discharged from inpatient service before she can have her procedures done. Physical therapy pending but cannot take place until after the surgery. Continue to offer pain management for the time being while trying to wean the patient off BiPAP. I will also order a KUB to rule out any worsening ileus or even small bowel obstructions. Constitutional Vitals: Vital Signs Temp Pulse Resp BP Pulse Ox 36.3 C 81 18 143/60 99 02/04/22 08:01 02/04/22 10:08 02/04/22 10:08 02/04/22 10:08 02/04/22 10:08 Period Temp Pulse Resp BP Sys/Urban Pulse Ox Last 24 Hr 36.3 C-37.2 C 35-152 13-36 99-181/57-109 89-100 Intake and Output 02/03/22 02/04/22 02/04/22 21:59 05:59 13:59 Output Total 1 450 56 Balance -1 -450 -56 Weight 66.27 kg Intake & Output: Intake & Output 02/03/22 02/04/22 02/04/22 21:59 05:59 13:59 Output Total 1 450 56 Balance -1 -450 -56 Weight 66.27 kg Output: Urine Catheter Amount 450 56 # of times incontinent of urine 1 Other: Urine Appearance Clear Clear Uretheral ([place]) Clear Clear Urine Color Dark Yellow Light Promise Uretheral ([place]) Dark Yellow Urine Odor Normal Stool Size Smear Smear Stool Color Brown Brown Stool Consistency Soft Soft General appearance: cooperative, disheveled, mild distress and obese Head Head exam: Present atraumatic and normal inspection Eye Eye exam: Present normal appearance ENT ENT exam: Present mucous membranes moist, normal exam and normal external ear exam Additional comments: oxygen mask in place Neck Neck exam: Present normal inspection Respiratory Respiratory exam: Present decreased breath sounds Cardiovascular Cardiovascular exam: Present normal rate and rhythm GI/Abdominal GI/Abdominal exam: Present normal bowel sounds Back Exam Back exam: Present tenderness Neurological Exam Neurological exam: Present alert and oriented X3 Skin Skin exam: Present intact and warm OBJ DATA Labs CBC & Chem 7: 02/03/22 09:05 02/03/22 09:05 Labs: Abnormal Lab Results 02/03/22 02/03/22 02/03/22 09:17 09:13 09:09 WBC RBC POC Hct 34.0 L MCV RDW Immature Gran % (Auto) Neut % (Auto) Lymph % (Auto) Lymph # (Auto) Immature Gran # Absolute Neutrophils POC pH 7.27 L POC pCO2 61.6 H* POC HCO3 28.1 H POC Total CO2 30.0 H POC VBG pH 7.30 L POC VBG pCO2 at Temp 61.2 H* POC VBG pO2 48 H POC VBG HCO3 30.0 H POC VBG Total CO2 32.0 H POC Venous O2 Sat 77.0 H POC VBG Base Excess 4.0 H* Glucose POC Glucose 120 H Total Protein Globulin Urine Appearance Urine Ketones Hyaline Casts Urine Mucus 02/03/22 02/03/22 02/02/22 09:05 09:05 21:15 WBC 11.5 H RBC 3.48 L POC Hct MCV 104.0 H RDW 17.7 H Immature Gran % (Auto) 1.1 H Neut % (Auto) Lymph % (Auto) 13.8 L Lymph # (Auto) Immature Gran # 0.13 H Absolute Neutrophils 8.93 H POC pH POC pCO2 POC HCO3 POC Total CO2 POC VBG pH POC VBG pCO2 at Temp POC VBG pO2 POC VBG HCO3 POC VBG Total CO2 POC Venous O2 Sat POC VBG Base Excess Glucose 120 H POC Glucose Total Protein 5.3 L Globulin 2.0 L Urine Appearance Hazy A Urine Ketones 5 A Hyaline Casts 18 H Urine Mucus Mod A 02/02/22 02/02/22 13:16 13:16 WBC RBC 3.55 L POC Hct MCV 102.3 H RDW 17.2 H Immature Gran % (Auto) 1.0 H Neut % (Auto) 87.8 H Lymph % (Auto) 4.5 L Lymph # (Auto) 0.45 L Immature Gran # 0.10 H Absolute Neutrophils 8.79 H POC pH POC pCO2 POC HCO3 POC Total CO2 POC VBG pH POC VBG pCO2 at Temp POC VBG pO2 POC VBG HCO3 POC VBG Total CO2 POC Venous O2 Sat POC VBG Base Excess Glucose 129 H POC Glucose Total Protein 5.5 L Globulin 1.9 L Urine Appearance Urine Ketones Hyaline Casts Urine Mucus Meds: Medications Acetaminophen (Acetaminophen 325 Mg Tablet) 650 mg PO Q6HP PRN; Protocol PRN Reason: Per Pain Protocol/Fever > 101 Hydrocodone Bitart/Acetaminophen (Hydrocodone/Apap 10/325mg Tablet) 1 tab PO Q4HP PRN; Protocol PRN Reason: pain Last Admin: 02/04/22 10:24 Dose: 1 tab Documented by: Albuterol Sulfate (Albuterol Sulfate 200 Puff Inhaler) 2 puff INH Q4HP PRN PRN Reason: Shortness Of Breath Baclofen (Baclofen 10 Mg Tablet) 10 mg PO Q6HP PRN PRN Reason: Muscle Spasticity Diphenhydramine HCl (Diphenhydramine 50 Mg/Ml Vial) 25 mg IV Q4-6HP PRN PRN Reason: Allergic Symptoms Last Admin: 02/03/22 11:20 Dose: 25 mg Documented by: Docusate Sodium (Docusate Sodium 100 Mg Capsule) 100 mg PO BID PO Last Admin: 02/04/22 08:40 Dose: 100 mg Documented by: Hydralazine HCl (Hydralazine 20 Mg/Ml Vial) 10 mg IV Q4-6HP PRN PRN Reason: Hypertension Hydromorphone HCl (Hydromorphone 0.5 Mg/0.5 Ml Syringe) 0.5 mg IV Q1HP PRN; Protocol PRN Reason: Per Pain Protocol Last Admin: 02/04/22 06:51 Dose: 0.5 mg Documented by: Sodium Chloride (Sodium Chloride 0.9%) 1,000 mls @ 0 mls/hr IV .Q0M PO Diltiazem HCl 125 mg/ Dextrose 125 mls @ 5 mls/hr IV Q12HP PRN; Protocol PRN Reason: Tachyarrhythmias Ketorolac Tromethamine (Ketorolac 30 Mg/Ml Vial) 30 mg IV Q6HP PRN; Protocol PRN Reason: Per Pain Protocol Stop: 02/04/22 15:13 Last Admin: 02/03/22 23:00 Dose: 30 mg Documented by: Levalbuterol HCl (Levalbuterol 1.25 Mg/3 Ml Ampul.Neb) 1.25 mg NEB Q2HP PRN PRN Reason: Shortness Of Breath Last Admin: 02/04/22 07:30 Dose: 1.25 mg Documented by: Lorazepam (Lorazepam 2 Mg/Ml Vial) 0.5 mg IV Q4HP PRN PRN Reason: ANXIETY/SEDATION Magnesium Oxide (Magnesium Oxide 400 Mg Tablet) 400 mg PO DAILY [facility] Last Admin: 02/04/22 08:40 Dose: 400 mg Documented by: Metoprolol Tartrate (Metoprolol Tartrate 50 Mg Tablet) 75 mg PO BID [facility] Last Admin: 02/04/22 08:40 Dose: 75 mg Documented by: Ondansetron HCl (Ondansetron 4 Mg/2 Ml Vial) 4 mg IV Q6HP PRN PRN Reason: Nausea And Vomiting Senna (Sennosides 1 Tablet) 2 tab PO HS [facility] Last Admin: 02/03/22 21:57 Dose: Not Given Documented by: Simvastatin (Simvastatin 20 Mg Tablet) 20 mg PO QHS [facility] Last Admin: 02/03/22 21:48 Dose: 20 mg Documented by: Sodium Chloride (0.9 % Sodium Chloride 10 Ml Syringe) 10 ml IV Q8 [facility] Last Admin: 02/04/22 05:57 Dose: 10 ml Documented by: Trazodone HCl (Trazodone Hcl 50 Mg Tablet) 25 mg PO HSP PRN PRN Reason: Insomnia A/P Assessment and plan (1) CHF (congestive heart failure): Status: Acute (2) Atrial fibrillation with rapid ventricular response: Status: Acute (3) Compression fracture of lumbar vertebra: Status: Acute (4) GERD (gastroesophageal reflux disease): Status: Chronic Qualifiers: Esophagitis presence: without esophagitis Qualified Code(s): K21.9 - Gastro-esophageal reflux disease without esophagitis (5) COPD (chronic obstructive pulmonary disease): Status: Chronic Qualifiers: COPD type: unspecified COPD Qualified Code(s): J44.9 - Chronic obstructive pulmonary disease, unspecified; J44.9 - Chronic obstructive pulmonary disease, unspecified; J44.9 - Chronic obstructive pulmonary disease, unspecified; J44.9 - Chronic obstructive pulmonary disease, unspecified (6) Hypertension: Status: Chronic Qualifiers: Hypertension type: essential hypertension Qualified Code(s): I10 - Essential (primary) hypertension; I10 - Essential (primary) hypertension; I10 - Essential (primary) hypertension (7) Sleep apnea: Status: Chronic Qualifiers: Sleep apnea type: obstructive Qualified Code(s): G47.33 - Obstructive sleep apnea (adult) (pediatric); G47.33 - Obstructive sleep apnea (adult) (pediatric) Narrative A/P Narrative: Assessment and Plans: 1. Multiple lumbar compression fracture secondary to osteoporosis: Inpatient, downgrade from ICU to PCU because of patient's does not require Cardizem drip but the patient is closer monitoring this otherwise she might rip off her oxygen mask Consult Dr. Pineda for potential vertebroplasty, which can only take placed as an outpatient as procedures and the patient's need to be off BiPAP at least during the day Physical therapy, cannot see and evaluate the patient's after vertebroplasty Occupational therapy, cannot see and evaluate the patient's after vertebroplasty Toradol PRN mild pain Ewen PRN moderate pain Dilaudid IV PRN severe pain Resume regular diet for now because vertebroplasty is not taking placed today 2. h/o CHF: Hold Aldactone, but also saline lock due to h/o CHF CT angiogram of the chest to rule out pulmonary embolism as a cause of increased work of breathing 3. h/o COPD: DuoNEB NEB PRN wheezing CT angiogram of the chest to rule out pulmonary embolism as a cause of increased work of breathing 4. Permanent atrial fibrillation: Metoprolol tartrate 75mg p.o. twice daily Cardizem drip was never induced and patient's heart rate was controlled at after Cardizem IV pushes last night 02/03 Currently rate controlled Hold Eliquis in preparation for the vertebroplasty 5. YELITZA on BiPAP: Continue to wean the patient off BiPAP at least during the day and preparations of vertebroplasty 6. Essential hypertension: Metoprolol tartrate 75mg p.o. twice daily Lisinopril Hold Aldactone, but also saline lock due to h/o CHF 7. GERD: Continue Famotidine PO GI ppx: IV Protonix DVT ppx: SCDs Code statu: DNI Prognosis: guarded Disposition: Inpatient, downgrade from ICU to PCU; PT OT Time Spent With Patient Time: Total time spent is greater than 50% in coordination of care (as documented) at patient's floor/unit and/or counseling patient: Total time spent with greater than 50% in coordination of care (as documented) at patient's floor/unit and/or counseling patient:: 35 - 50 minutes QUALITY VTE Deep Vein Thrombosis/Pulmonary Embolism Present on Admission: No
--- NOTE | 2022-02-04 11:42 | XRay Report ---
HISTORY: Constipation FINDINGS: The bowel pattern is normal without evidence of fecal impaction or bowel obstruction. No soft tissue mass is seen. There is a large amount of atherosclerotic plaque in the abdomen or pelvis. A stent is seen in the right internal and external iliac artery. There is arthritis and disc space narrowing at several levels in the spine. Lungs are hyperinflated. There is generalized interstitial lung disease bilaterally. IMPRESSION: Normal bowel pattern Interpreted and Authenticated by: Dipak Gore 02/04/22
[2022-02-04] MEDS: KETOROLAC 30 MG/ML VIAL IV PRN (13:11)
[2022-02-04] MEDS: predniSONE 10 MG TABLET PO SCH (13:11)
[2022-02-04] MEDS: LORazepam 2 MG/ML VIAL IV PRN ×2 (18:10→20:18)
--- NOTE | 2022-02-04 18:28 | EKG ---
[facility] Test Date: 2022-02-03 Pat Name: Renay Mata Department: ICU Room: 120C Gender: Female Ragman: : 1940 Requested By: Panda Harmon Order Number: [id number] Reading MD: Weston Gracia Measurements Intervals [place] Rate: 73 P: [place]: QRS: 19 QRSD: 164 T: 269 QT: 401 QTc: 442 Interpretive Statements Atrial flutter LVH with secondary repolarization abnormality Electronically Signed On 02-04-2022 18:28:32 PDT by Weston Gracia /store/M0/[id number]
[2022-02-04] MEDS ORDERED: DILTIAZEM 25 MG/5 ML VIAL IV PRN (18:29)
[2022-02-04] MEDS: SENNOSIDES 1 TABLET PO SCH (20:29)
[2022-02-04] MEDS: SIMVASTATIN 20 MG TABLET PO SCH (20:29)
[2022-02-05] MEDS: HYDROmorphone 0.5 MG/0.5 ML SYRINGE IV PRN ×4 (01:13→19:10)
[2022-02-05] MEDS: 0.9 % SODIUM CHLORIDE 10 ML SYRINGE IV SCH ×2 (05:15→14:30)
[2022-02-05] MEDS: LEVALBUTEROL 1.25 MG/3 ML AMPUL.NEB NEB PRN ×2 (06:48→11:08)
[2022-02-05] MEDS ORDERED: PANTOPRAZOLE 40 MG VIAL IV SCH (07:30)
[2022-02-05] MEDS ORDERED: predniSONE 10 MG TABLET PO SCH (08:00)
[2022-02-05] MEDS ORDERED: DILTIAZEM 25 MG/5 ML VIAL IV ONE ×2 (08:34→09:33)
[2022-02-05] MEDS ORDERED: APIXABAN 5 MG TABLET PO SCH (09:00)
--- NOTE | 2022-02-05 09:26 | Internal Med Progress Note ---
SUBJECTIVE Subjective Patient information: Note initiated : 02/05/22 at 9:20 am Service Date, if different from initiated Date: [] Patient: Renay Mata a 81 y/o F admitted on 02/03/22 for back pain. Chief Complaint: [] Interval history: History of present illness: Ms. Mata is a 81 year old F history of osteoporosis with multiple lumbar spinal compression fracture, CHF, COPD, atrial fibrillation, essential hypertensions, GERD, obstructive sleep apnea on BiPAP, presenting with chronic back pain. She was supposed to have an appointment with Dr. Pineda anesthesiologist for vertebroplasty, where he thought that the patient was too dehydrated and was in a fair best shape to receive the procedures. Instead, he referred patients to our ED for further evaluations. He would like the patient to be rehydrated and for better pain control and have the procedures to be scheduled for potentially tomorrow. Patient is currently company of 10 out of 10 sharp constant lower back pain. She also is complaining of constipation with last bowel movement 2 days ago. She denies any difficulty urinating. She has a poor appetite and is also feeling generally weak. Labs within normal limits. A recent CT of the lumbar spine showing multiple lumbar spinal cord compression fractures. 02/03: Increased work of breathing this morning. Patient was saturating in the 50s on 3 L of oxygen's. We increased her oxygen to 15L/min and her oxygen saturations back to the mid 90s. Subjective ROS not obtained due to patient's clinical situations. Will order ABG and CT angiogram of the chest to rule out pulmonary embolism as a cause of increased work of breathing. We will postpone the vertebroplasty to at least tomorrow. 02/04: Patient's developed A. fib with heart rate up to the 140s yesterday evening so I transferred the patient to ICU and placed the order for Cardizem drip but the drip was never started she got her heart rate controlled it with IV Cardizem pushes. Patient is continue to be on BiPAP last night and this morning during the day. With she had a small bowel movement earlier during the morning but she is still complaining of feeling constipated. She is also complaining of moderate shortness of breath with respiratory wheezings. She is also complaining of severe back pain. I touched base with pain surgeon Dr. Pineda, who stated that the patient's need to be off the BiPAP during the day because she need to be in the prone positions during and after her surgery. She also need to be discharged from inpatient service before she can have her procedures done. Physical therapy pending but cannot take place until after the surgery. Continue to offer pain management for the time being while trying to wean the patient off BiPAP. I will also order a KUB to rule out any worsening ileus or even small bowel obstructions. 02/05: ABG: pH 7.29 pCO2 70.5, pO2 126 HCO3 34. Patient is very lethargic this morning and she is BiPAP dependent. Feel like patient is not ready for vertebroplasty so it would be postponed. We will start patients on Eliquis. We will touch base with family regarding prognosis and goals of care. Pertinent ROS: Not obtained due to clinical situations. Constitutional Vitals: Vital Signs Temp Pulse Resp BP Pulse Ox 36.5 C 96 H 14 158/88 100 02/05/22 08:01 02/05/22 08:06 02/05/22 08:06 02/05/22 08:01 02/05/22 08:06 Period Temp Pulse Resp BP Sys/Urban Pulse Ox Last 24 Hr 36.3 C-36.6 C 61-152 14-36 99-176/53-121 82-100 Intake and Output 02/04/22 02/05/22 02/05/22 21:59 05:59 13:59 Intake Total 437 50 Output Total 157 115 43 Balance 280 -65 -43 Weight 64.1 kg Intake & Output: Intake & Output 02/04/22 02/05/22 02/05/22 21:59 05:59 13:59 Intake Total 437 50 Output Total 157 115 43 Balance 280 -65 -43 Weight 64.1 kg Intake: Nourishment/Supplement quantity 237 (ml) Oral 200 50 Output: Urine Catheter Amount 157 115 43 Other: Meal Dinner Percent of Meal Consumed Refused Nourishment/Supplement name Tennyson Instant breakfast Urine Appearance Clear Clear Clear Uretheral (Hallman) Clear Clear Urine Color Dark Yellow Dark Yellow Dark Yellow Uretheral (Hallman) Bright Yellow Light Promise Urine Odor Normal Stool Size Smear Stool Color Brown Stool Consistency Soft Exam: Lethargic Head Head exam: Present atraumatic and normal inspection Eye Eye exam: Present normal appearance ENT ENT exam: Present mucous membranes moist, normal exam and normal external ear exam Additional comments: BiPAP in place Neck Neck exam: Present normal inspection Respiratory Respiratory exam: Present decreased breath sounds Cardiovascular Cardiovascular exam: Present irregular rhythm GI/Abdominal GI/Abdominal exam: Present normal bowel sounds Back Exam Back exam: Present normal inspection and vertebral tenderness Neurological Exam Neurological exam: Absent alert or oriented X3 Additional comments: Lethargic Skin Skin exam: Present intact and warm OBJ DATA Labs CBC & Chem 7: 02/03/22 09:05 02/03/22 09:05 Labs: Abnormal Lab Results 02/05/22 02/03/22 02/03/22 06:39 09:17 09:13 WBC RBC POC Hct 34.0 L MCV RDW Immature Gran % (Auto) Neut % (Auto) Lymph % (Auto) Lymph # (Auto) Immature Gran # Absolute Neutrophils POC pH 7.29 L 7.27 L POC pCO2 70.5 H* 61.6 H* POC pO2 126 H POC HCO3 34.0 H 28.1 H POC Total CO2 36.0 H 30.0 H POC ABG Base Excess 7.0 H POC VBG pH POC VBG pCO2 at Temp POC VBG pO2 POC VBG HCO3 POC VBG Total CO2 POC Venous O2 Sat POC VBG Base Excess Hgb O2 Saturation 98.0 H Glucose POC Glucose 120 H Total Protein Globulin Urine Appearance Urine Ketones Hyaline Casts Urine Mucus 02/03/22 02/03/22 02/03/22 09:09 09:05 09:05 WBC 11.5 H RBC 3.48 L POC Hct MCV 104.0 H RDW 17.7 H Immature Gran % (Auto) 1.1 H Neut % (Auto) Lymph % (Auto) 13.8 L Lymph # (Auto) Immature Gran # 0.13 H Absolute Neutrophils 8.93 H POC pH POC pCO2 POC pO2 POC HCO3 POC Total CO2 POC ABG Base Excess POC VBG pH 7.30 L POC VBG pCO2 at Temp 61.2 H* POC VBG pO2 48 H POC VBG HCO3 30.0 H POC VBG Total CO2 32.0 H POC Venous O2 Sat 77.0 H POC VBG Base Excess 4.0 H* Hgb O2 Saturation Glucose 120 H POC Glucose Total Protein 5.3 L Globulin 2.0 L Urine Appearance Urine Ketones Hyaline Casts Urine Mucus 02/02/22 02/02/22 02/02/22 21:15 13:16 13:16 WBC RBC 3.55 L POC Hct MCV 102.3 H RDW 17.2 H Immature Gran % (Auto) 1.0 H Neut % (Auto) 87.8 H Lymph % (Auto) 4.5 L Lymph # (Auto) 0.45 L Immature Gran # 0.10 H Absolute Neutrophils 8.79 H POC pH POC pCO2 POC pO2 POC HCO3 POC Total CO2 POC ABG Base Excess POC VBG pH POC VBG pCO2 at Temp POC VBG pO2 POC VBG HCO3 POC VBG Total CO2 POC Venous O2 Sat POC VBG Base Excess Hgb O2 Saturation Glucose 129 H POC Glucose Total Protein 5.5 L Globulin 1.9 L Urine Appearance Hazy A Urine Ketones 5 A Hyaline Casts 18 H Urine Mucus Mod A Meds: Medications Acetaminophen (Acetaminophen 325 Mg Tablet) 650 mg PO Q6HP PRN; Protocol PRN Reason: Per Pain Protocol/Fever > 101 Hydrocodone Bitart/Acetaminophen (Hydrocodone/Apap 10/325mg Tablet) 1 tab PO Q4HP PRN; Protocol PRN Reason: pain Last Admin: 02/04/22 15:03 Dose: 1 tab Documented by: Albuterol Sulfate (Albuterol Sulfate 200 Puff Inhaler) 2 puff INH Q4HP PRN PRN Reason: Shortness Of Breath Apixaban (Apixaban 5 Mg Tablet) 5 mg PO BID PO Baclofen (Baclofen 10 Mg Tablet) 10 mg PO Q6HP PRN PRN Reason: Muscle Spasticity Diphenhydramine HCl (Diphenhydramine 50 Mg/Ml Vial) 25 mg IV Q4-6HP PRN PRN Reason: Allergic Symptoms Last Admin: 02/03/22 11:20 Dose: 25 mg Documented by: Docusate Sodium (Docusate Sodium 100 Mg Capsule) 100 mg PO BID PO Last Admin: 02/04/22 20:28 Dose: 100 mg Documented by: Hydralazine HCl (Hydralazine 20 Mg/Ml Vial) 10 mg IV Q4-6HP PRN PRN Reason: Hypertension Hydromorphone HCl (Hydromorphone 0.5 Mg/0.5 Ml Syringe) 0.5 mg IV Q1HP PRN; Protocol PRN Reason: Per Pain Protocol Last Admin: 02/05/22 03:45 Dose: 0.5 mg Documented by: Sodium Chloride (Sodium Chloride 0.9%) 1,000 mls @ 0 mls/hr IV .Q0M [facility] Diltiazem HCl 125 mg/ Dextrose 125 mls @ 5 mls/hr IV Q12HP PRN; Protocol PRN Reason: Tachyarrhythmias Levalbuterol HCl (Levalbuterol 1.25 Mg/3 Ml Ampul.Neb) 1.25 mg NEB Q2HP PRN PRN Reason: Shortness Of Breath Last Admin: 02/05/22 06:48 Dose: 1.25 mg Documented by: Lorazepam (Lorazepam 2 Mg/Ml Vial) 0.5 mg IV Q4HP PRN PRN Reason: ANXIETY/SEDATION Last Admin: 02/04/22 20:18 Dose: 0.5 mg Documented by: Magnesium Oxide (Magnesium Oxide 400 Mg Tablet) 400 mg PO DAILY [facility] Last Admin: 02/04/22 08:40 Dose: 400 mg Documented by: Metoprolol Tartrate (Metoprolol Tartrate 50 Mg Tablet) 75 mg PO BID [facility] Last Admin: 02/04/22 20:29 Dose: 75 mg Documented by: Ondansetron HCl (Ondansetron 4 Mg/2 Ml Vial) 4 mg IV Q6HP PRN PRN Reason: Nausea And Vomiting Pantoprazole Sodium (Pantoprazole 40 Mg Vial) 40 mg IV [facility] Last Admin: 02/05/22 07:40 Dose: 40 mg Documented by: Prednisone (Prednisone 10 Mg Tablet) 40 mg [facility] Last Admin: 02/04/22 13:11 Dose: 40 mg Documented by: Senna (Sennosides 1 Tablet) 2 tab PO [facility] Last Admin: 02/04/22 20:29 Dose: 2 tab Documented by: Simvastatin (Simvastatin 20 Mg Tablet) 20 mg PO QHS [facility] Last Admin: 02/04/22 20:29 Dose: 20 mg Documented by: Sodium Chloride (0.9 % Sodium Chloride 10 Ml Syringe) 10 ml IV Q8 [facility] Last Admin: 02/05/22 05:15 Dose: 10 ml Documented by: Trazodone HCl (Trazodone Hcl 50 Mg Tablet) 25 mg PO HSP PRN PRN Reason: Insomnia A/P Assessment and plan (1) CHF (congestive heart failure): Status: Acute (2) Atrial fibrillation with rapid ventricular response: Status: Acute (3) Compression fracture of lumbar vertebra: Status: Acute (4) GERD (gastroesophageal reflux disease): Status: Chronic Qualifiers: Esophagitis presence: without esophagitis Qualified Code(s): K21.9 - Gastro-esophageal reflux disease without esophagitis (5) COPD (chronic obstructive pulmonary disease): Status: Chronic Qualifiers: COPD type: unspecified COPD Qualified Code(s): J44.9 - Chronic obstructive pulmonary disease, unspecified; J44.9 - Chronic obstructive pulmonary disease, unspecified; J44.9 - Chronic obstructive pulmonary disease, unspecified; J44.9 - Chronic obstructive pulmonary disease, unspecified (6) Hypertension: Status: Chronic Qualifiers: Hypertension type: essential hypertension Qualified Code(s): I10 - Essential (primary) hypertension; I10 - Essential (primary) hypertension; I10 - Essential (primary) hypertension (7) Sleep apnea: Status: Chronic Qualifiers: Sleep apnea type: obstructive Qualified Code(s): G47.33 - Obstructive sleep apnea (adult) (pediatric); G47.33 - Obstructive sleep apnea (adult) (pediatric) Narrative A/P Narrative: Assessment and Plans: 1. Multiple lumbar compression fracture secondary to osteoporosis: Patient is not ready for planted vertebroplasty she is BiPAP dependent and she is retaining oxygen and she has a very high surgical risk. I will touch base with family regarding prognosis and goals of care during family conference today Physical therapy, cannot see and evaluate the patient's after vertebroplasty Occupational therapy, cannot see and evaluate the patient's after vertebroplasty Toradol PRN mild pain [place] PRN moderate pain Dilaudid IV PRN severe pain Resume regular diet for now because vertebroplasty is not taking placed today 2. h/o CHF: Hold Aldactone, but also saline lock due to h/o CHF CT angiogram of the chest to rule out pulmonary embolism as a cause of increased work of breathing 3. h/o COPD: BiPAP dependance. I will touch base with family regarding prognosis and goals of care during family conference today DuoNEB NEB PRN wheezing CT angiogram of the chest to rule out pulmonary embolism as a cause of increased work of breathing 4. Permanent atrial fibrillation: Metoprolol tartrate 75mg p.o. twice daily Cardizem IV PRN elevated heart rate Currently rate controlled Resume Eliquis 5. YELITZA on BiPAP: BiPAP dependance. I will touch base with family regarding prognosis and goals of care during family conference today 6. Essential hypertension: Metoprolol tartrate 75mg p.o. twice daily Lisinopril Hold Aldactone, but also saline lock due to h/o CHF 7. GERD: Continue Famotidine PO GI ppx: IV Protonix DVT ppx: Eliquis Code statu: DNI Prognosis: Poor Disposition: Inpatient PCU; PT OT Time Spent With Patient Time: Total time spent is greater than 50% in coordination of care (as documented) at patient's floor/unit and/or counseling patient: Total time spent with greater than 50% in coordination of care (as documented) at patient's floor/unit and/or counseling patient:: 50 - 70 minutes QUALITY VTE Deep Vein Thrombosis/Pulmonary Embolism Present on Admission: No
--- NOTE | 2022-02-05 09:43 | XRay Report ---
HISTORY: Short of breath, COPD FINDINGS: Patient has emphysema with superimposed inflammation throughout the right lung. There is also a small right-sided pleural effusion which may be accounting for some of the apparent opacification of the right lung. The heart appears mildly enlarged. However, this is due to magnification and epicardial fat pad seen on CT scan done two days ago. The infiltrate in the right lower lobe appears to have become worse. IMPRESSION: Right lower lobe pneumonia superimposed upon emphysema Interpreted and Authenticated by: Dipak Gore 02/05/22
[2022-02-05] MEDS: MAGNESIUM OXIDE 400 MG TABLET PO SCH (09:44)
[2022-02-05] MEDS: METOPROLOL TARTRATE 50 MG TABLET PO SCH (09:44)
[2022-02-05] MEDS: DOCUSATE SODIUM 100 MG CAPSULE PO SCH (09:44)
[2022-02-05] MEDS: predniSONE 10 MG TABLET PO SCH (09:44)
[2022-02-05 09:59] LABS: Basophils # (Auto) 0.01 K/mcL (0.00-0.30); Basophils % (Auto) 0.1 % (0.0-2.0); Eosinophils # (Auto) 0 K/mcL (0.00-0.70); Eosinophils % (Auto) 0 % (0.0-7.0); Hematocrit 34.7 % (34.1-44.9); Hemoglobin 10.8 g/dL (11.2-15.7); Lymphocytes # (Auto) 0.49 K/mcL (1.50-4.80); Lymphocytes % (Auto) 3.6 % (15.5-49.0); Mean Cell Volume 105.8 fL (80.0-100.0); Mean Corpuscular HGB Conc 31.1 g/dL (31.0-36.0); Mean Platelet Volume 9.1 fL (7.4-10.4); Monocytes # (Auto) 0.96 K/mcL (0.10-0.90); Neutrophils % (Auto) 88.6 % (38.0-78.0); Platelet Count 271 K/mcL (140-440); RBC 3.28 M/mcL (3.59-5.38); WBC 13.8 K/mcL (4.5-11.0)
[2022-02-05 10:00] LABS: ALT/SGPT 24 U/L (<40); AST/SGOT 17 U/L (<32); Albumin 3.6 gm/dL (3.2-5.2); Albumin/Globulin Ratio 2.1 (1.0-2.3); Alkaline Phosphatase 70 U/L (39-117); Bilirubin,Total 0.6 mg/dL (0.1-1.0); Blood Urea Nitrogen 20 mg/dL (8-23); Calcium 9.2 mg/dL (8.6-10.4); Carbon Dioxide 25 mmol/L (22-30); Chloride 105 mmol/L (96-108); Globulin 1.7 gm/dL (2.2-3.7); Glomerular Filtration Rate 70; Glucose 140 mg/dL (70-105)
[2022-02-05] MEDS: HYDROcodone/APAP 10/325MG TABLET PO PRN (10:52)
[2022-02-05] MEDS ORDERED: morphine 4 MG/ML VIAL IV PRN (13:19)
[2022-02-05] MEDS ORDERED: LORazepam 2 MG/ML VIAL IV PRN (13:19)
[2022-02-05] MEDS ORDERED: 0.9 % SODIUM CHLORIDE 10 ML SYRINGE IV SCH (14:00)
[2022-02-05] MEDS: LORazepam 2 MG/ML VIAL IV PRN (18:47)
--- NOTE | 2022-02-05 19:08 | Discharge Summary ---
Discharge Provider Provider IMPORTANT FOLLOW-UP INFORMATION FOR PCP: Patient information: Note initiated : 02/05/22 at 7:06 pm Service Date, if different from initiated Date: [] Patient: Renay Mata 81 y/o F admitted on 02/03/22 for back pain. Chief Complaint: [] Date of admission: 02/03/22 09:31 Discharge date: 02/05/22 Primary care physician: Santosh Higginbotham MD Attending physician on admission: Panda Harmon Consults: 02/02/22 Consult to Physician [CONS] Stat Comment: Consulting Provider: Panda Harmon Reason For Exam: Physician to Consult 02/02/22 15:55 Consult to Physician [CONS] Routine Comment: Consulting Provider: Antonio Vega Reason For Exam: Physician to Consult Consult to Physician [CONS] Routine Comment: Consulting Provider: Kadeem Acosta Reason For Exam: Physician to Consult Attending physician on discharge: Panda Harmon COURSE Hospital Course Hospital course: History of present illness: Ms. Mata is a 81 year old F history of osteoporosis with multiple lumbar spinal compression fracture, CHF, COPD, atrial fibrillation, essential hypertensions, GERD, obstructive sleep apnea on BiPAP, presenting with chronic back pain. She was supposed to have an appointment with Dr. Pineda anesthesiologist for vertebroplasty, where he thought that the patient was too dehydrated and was in a fair best shape to receive the procedures. Instead, he referred patients to our ED for further evaluations. He would like the patient to be rehydrated and for better pain control and have the procedures to be scheduled for potentially tomorrow. Patient is currently company of 10 out of 10 sharp constant lower back pain. She also is complaining of constipation with last bowel movement 2 days ago. She denies any difficulty urinating. She has a poor appetite and is also feeling generally weak. Labs within normal limits. A recent CT of the lumbar spine showing multiple lumbar spinal cord compression fractures. 02/03: Increased work of breathing this morning. Patient was saturating in the 50s on 3 L of oxygen's. We increased her oxygen to 15L/min and her oxygen saturations back to the mid 90s. Subjective ROS not obtained due to patient's clinical situations. Will order ABG and CT angiogram of the chest to rule out pulmonary embolism as a cause of increased work of breathing. We will postpone the vertebroplasty to at least tomorrow. 02/04: Patient's developed A. fib with heart rate up to the 140s yesterday evening so I transferred the patient to ICU and placed the order for Cardizem drip but the drip was never started she got her heart rate controlled it with IV Cardizem pushes. Patient is continue to be on BiPAP last night and this morning during the day. With she had a small bowel movement earlier during the morning but she is still complaining of feeling constipated. She is also complaining of moderate shortness of breath with respiratory wheezings. She is also co mplaining of severe back pain. I touched base with pain surgeon Dr. Pineda, who stated that the patient's need to be off the BiPAP during the day because she need to be in the prone positions during and after her surgery. She also need to be discharged from inpatient service before she can have her procedures done. Physical therapy pending but cannot take place until after the surgery. Continue to offer pain management for the time being while trying to wean the patient off BiPAP. I will also order a KUB to rule out any worsening ileus or even small bowel obstructions. 02/05: ABG: pH 7.29 pCO2 70.5, pO2 126 HCO3 34. Patient is very lethargic this morning and she is BiPAP dependent. Feel like patient is not ready for vertebroplasty so it would be postponed. We will start patients on Eliquis. Had care conference with family member in the decided to switch patient to comfort care only. Patient's was discharged home with home hospice set up for her. Discharge diagnosis: lumbar compression fractures, end stage COPD Time Spent with Patient Time attestation: Total time spent providing and/or coordinating discharge services: Time spent: Less than 30 minutes EXAM Constitutional Vitals: Temp Pulse Resp BP Pulse Ox 36.5 C 85 17 103/47 97 02/05/22 08:01 02/05/22 12:02/05/22 12:02/05/22 12:02/05/22 13:00 General appearance: disheveled, mild distress and no acute distress Head Head exam: Present atraumatic and normocephalic Eye Eye exam: Present EOMI and PERRL ENT ENT exam: Present mucous membranes moist, normal exam and normal external ear exam Additional comments: BiPAP in place Neck Neck exam: Present normal inspection; Absent lymphadenopathy, tenderness or thyromegaly Respiratory Respiratory exam: Present decreased breath sounds; Absent accessory muscle use, respiratory distress or wheezes Cardiovascular Cardiovascular exam: Present normal rate and rhythm; Absent JVD GI/Abdominal GI/Abdominal exam: Present normal bowel sounds and soft; Absent organomegaly or tenderness Extremities Exam Extremities exam: Present full ROM, normal capillary refill and normal inspection; Absent tenderness Back Exam Back exam: Present vertebral tenderness Neurological Exam Neurological exam: Present altered, CN II-XII intact and oriented X3; Absent alert or motor sensory deficit Additional comments: Lethargic Psychiatric Psychiatric exam: Present normal affect and normal mood; Absent anxious or depressed Skin Skin exam: Present dry and intact Discharge Data Data Completed and Pending Labs on day of discharge: Labs from last 24 hours 02/05/22 02/05/22 02/05/22 08:57 08:57 06:39 WBC 13.8 H RBC 3.28 L Hgb 10.8 L Hct 34.7 MCV 105.8 H MCH 32.9 MCHC 31.1 RDW 17.0 H Plt Count 271 MPV 9.1 Immature Gran % (Auto) 0.7 H Neut % (Auto) 88.6 H Lymph % (Auto) 3.6 L [facility] % (Auto) 7.0 Eos % (Auto) 0 Baso % (Auto) 0.1 Lymph # (Auto) 0.49 L [facility] # (Auto) 0.96 H Eos # (Auto) 0 Baso # (Auto) 0.01 Immature Gran # 0.09 H Absolute Neutrophils 12.32 H POC pH 7.29 L POC pCO2 70.5 H* POC pO2 126 H POC HCO3 34.0 H POC Total CO2 36.0 H POC ABG Base Excess 7.0 H Hgb O2 Saturation 98.0 H Sodium 140 Potassium 4.4 Chloride 105 Carbon Dioxide 25 Anion Gap 10.0 BUN 20 Creatinine 0.8 GFR Calculation 70 Glucose 140 H POC Arterial Lactate 0.7 Calcium 9.2 Total Bilirubin 0.6 AST 17 ALT 24 Alkaline Phosphatase 70 Total Protein 5.3 L Albumin 3.6 Globulin 1.7 L Albumin/Globulin Ratio 2.1 Discharge Plan Patient/Caregiver Discharge Instructions Activity: increase activity as tolerated Diet: Regular Diet Instructions: Hospice Care (GEN) Activity Restrictions/Additional Instructions: Your hospice care has been arranged with [facility]. You have been given hard copy prescriptions for hospice to use. Diet and Activity as tolerated. This discharge packet is provided to you to help keep you informed about your care. We want to ensure you get everything you need when you go home. You will also be receiving a call from us in a few days to follow up with you and see how you are doing since your discharge. This gives us a chance to listen to any concerns you maybe experiencing since you were discharged or any additional needs you may have, as well as providing us feedback on your care experience. We strive to always provide excellent care and thank you for your feedback and for choosing [facility]. Prescriptions: New baclofen 10 mg Tablet 10 mg PO Q6HP PRN (Reason: Muscle Spasticity) 30 Days 0RF Continued (DME) Nebulizer and supplies Qty: 1 0RF Rx Instructions: As directed (DME) Bipap mask and supplies Qty: 1 0RF Rx Instructions: As directed ipratropium-albuterol 0.5 mg-3 mg(2.5 mg base)/3 mL solution for nebulization See Rx Instructions .ROUTE .COMPLEX Qty: 1080 4RF Dose Instruction: USE 3 ML INHALATIONS FOUR TIMES DAILY NEEDED Rx Instructions: USE 3 ML INHALATIONS FOUR TIMES DAILY NEEDED (DME) Home care Hospital bed See Rx Instructions .Route .MEDSUPPLY Qty: 1 0RF Hold Instructions: PT was able to get one Rx Instructions: As directed for 6 weeks albuterol sulfate 90 mcg/actuation HFA aerosol inhaler 1 inh inhalation ONCE 0RF hydrocodone-acetaminophen 10-325 mg tablet 1 tab PO Q4-6H PRN (Reason: pain) Qty: 180 0RF sennosides [Grace-luis] 8.6 mg Tablet 8.6 mg PO BID 0RF docusate sodium [Colace] 100 mg Capsule 100 mg PO BID 0RF Discontinued Eliquis 5 mg tablet 5 mg PO BID 0RF prednisone 10 mg tablet See Rx Instructions PO QDAY 0RF Rx Instructions: 4 tabs PO daily prn spironolactone 25 mg tablet 50 mg PO QAM Qty: 180 4RF aspirin 81 mg tablet,delayed release (DR/EC) 81 mg PO QDAY 0RF calcitonin (salmon) 200 unit/actuation spray,non-aerosol 1 spray intranasal (ALT) ONCE Qty: 3.7 5RF metoprolol tartrate 50 mg tablet 1.5 tab PO BID 0RF Follow Up Plan Follow up with: Santosh Higginbotham MD [Primary Care Provider] - ([facility]; no appointment made See your PCP as needed) Patient Disposition: Hospice - Home Prognosis: Fair Rehab Potential: Undetermined I certify that the patient requires SNF services: No Overall status at discharge: patient is not back to baseline Discharge Orders: Discharge Order (Routine); Ordered 02/05/22 Ordered By: Panda MAYERS VTE Deep Vein Thrombosis/Pulmonary Embolism Present on Admission: No
[2022-02-05] MEDS ORDERED: LORazepam 2 MG/ML ORAL.SOL PO PRN (20:15)
[2022-02-05] MEDS ORDERED: ONDANSETRON 4 MG ODT TABLET SL PRN (20:20)
[2022-02-05] MEDS ORDERED: ACETAMINOPHEN 650 MG SUPP.RECT PR PRN (20:24)
[2022-02-05] MEDS ORDERED: diphenhydrAMINE 12.5 MG/5 ML ORAL.SOL PO PRN (20:25)
[2022-02-05] MEDS: morphine 20 MG/ML ORAL.CONC SL PRN (23:50)
[2022-02-06] MEDS: morphine 20 MG/ML ORAL.CONC SL PRN (02:52)
[2022-02-06] MEDS ORDERED: METOPROLOL TARTRATE 5 MG/5 ML VIAL IV PRN ×2 (09:35→23:24)
--- NOTE | 2022-02-06 09:38 | Internal Med Progress Note ---
SUBJECTIVE Subjective Patient information: Note initiated : 02/06/22 at 9:35 am Service Date, if different from initiated Date: [] Patient: Renay Mata a 81 y/o F admitted on 02/03/22 for back pain. Chief Complaint: [] Interval history: History of present illness: Ms. Mata is a 81 year old F history of osteoporosis with multiple lumbar spinal compression fracture, CHF, COPD, atrial fibrillation, essential hypertensions, GERD, obstructive sleep apnea on BiPAP, presenting with chronic back pain. She was supposed to have an appointment with Dr. Pineda anesthesiologist for vertebroplasty, where he thought that the patient was too dehydrated and was in a fair best shape to receive the procedures. Instead, he referred patients to our ED for further evaluations. He would like the patient to be rehydrated and for better pain control and have the procedures to be scheduled for potentially tomorrow. Patient is currently company of 10 out of 10 sharp constant lower back pain. She also is complaining of constipation with last bowel movement 2 days ago. She denies any difficulty urinating. She has a poor appetite and is also feeling generally weak. Labs within normal limits. A recent CT of the lumbar spine showing multiple lumbar spinal cord compression fractures. 02/03: Increased work of breathing this morning. Patient was saturating in the 50s on 3 L of oxygen's. We increased her oxygen to 15L/min and her oxygen saturations back to the mid 90s. Subjective ROS not obtained due to patient's clinical situations. Will order ABG and CT angiogram of the chest to rule out pulmonary embolism as a cause of increased work of breathing. We will postpone the vertebroplasty to at least tomorrow. 02/04: Patient's developed A. fib with heart rate up to the 140s yesterday evening so I transferred the patient to ICU and placed the order for Cardizem drip but the drip was never started she got her heart rate controlled it with IV Cardizem pushes. Patient is continue to be on BiPAP last night and this morning during the day. With she had a small bowel movement earlier during the morning but she is still complaining of feeling constipated. She is also complaining of moderate shortness of breath with respiratory wheezings. She is also complaining of severe back pain. I touched base with pain surgeon Dr. Pineda, who stated that the patient's need to be off the BiPAP during the day because she need to be in the prone positions during and after her surgery. She also need to be discharged from inpatient service before she can have her procedures done. Physical therapy pending but cannot take place until after the surgery. Continue to offer pain management for the time being while trying to wean the patient off BiPAP. I will also order a KUB to rule out any worsening ileus or even small bowel obstructions. 02/05: ABG: pH 7.29 pCO2 70.5, pO2 126 HCO3 34. Patient is very lethargic this morning and she is BiPAP dependent. Feel like patient is not ready for vertebroplasty so it would be postponed. We will start patients on Eliquis. We will touch base with family regarding prognosis and goals of care. 02/06: Yesterday afternoon family decided to switch patient is to comfort care with home hospice. She was to be discharged home with home hospice but ENT could not take the patient with CPAP BiPAP and being comatose. This morning changed his mind and he wanted curative intentions again with the intentions to be consider for vertebroplasty next Tuesday. He also request the patient to be seen by wash test checker. I told her that is not going to be making much difference and also is not feasible for the same reason that she could not be discharged home yesterday. Chest x-ray yesterday showing right lower lobe pneumonia versus atelectasis. wants patient is to be started on antibiotics to cover for the possibility of the pneumonia. Will change from comfort care only to curative intentions with DNI DNR. Insert IV access. N.p.o. for the time being due to degree of alertness. D5 NS at 75 cc/h. Dilaudid and Ativan IV as needed pain and anxiety, respectively. IV Zosyn for coverage of potential hospital pneumonia. Continue CPAP/BiPAP for ventilation support. Constitutional Vitals: Vital Signs Temp Pulse Resp BP Pulse Ox 37.0 C 120 H 40 H 183/84 92 02/06/22 07:16 02/05/22 19:42 02/06/22 07:16 02/06/22 07:16 02/06/22 07:16 Period Temp Pulse Resp BP Sys/Urban Pulse Ox Last 24 Hr 37.0 C-37.6 C 47-120 17-40 103-196/47-156 87-100 Intake and Output 02/05/22 02/06/22 02/06/22 21:59 05:59 13:59 Intake Total 0 Output Total 460 250 110 Balance -460 -250 -110 Weight 63.639 kg Intake & Output: Intake & Output 02/05/22 02/06/22 02/06/22 21:59 05:59 13:59 Intake Total 0 Output Total 460 250 110 Balance -460 -250 -110 Weight 63.639 kg Intake: Oral 0 Output: Urine Catheter Amount 460 250 110 Other: Urine Appearance Cloudy Clear Urine Color Dark Promise Brown Light Promise Uretheral (Hallman) Dark Yellow Urine Odor Normal Stool Size Smear Stool Color Brown # of times incontinent of 1 Bowels General appearance: disheveled and severe distress; no cooperative Exam: Comatose Head Head exam: Present atraumatic and normal inspection Eye Eye exam: Present normal appearance ENT ENT exam: Present mucous membranes moist, normal exam and normal external ear exam Additional comments: CPAP in place Neck Neck exam: Present normal inspection Respiratory Respiratory exam: Present decreased breath sounds Cardiovascular Cardiovascular exam: Present irregular rhythm and tachycardia GI/Abdominal GI/Abdominal exam: Present normal bowel sounds Additional comments: Hallman catheter in place Back Exam Back exam: Present vertebral tenderness Neurological Exam Neurological exam: Present alert and oriented X3 Skin Skin exam: Present intact and warm OBJ DATA Labs CBC & Chem 7: 02/05/22 08:57 02/05/22 08:57 Labs: Abnormal Lab Results 02/05/22 02/05/22 02/05/22 08:57 08:57 06:39 WBC 13.8 H RBC 3.28 L Hgb 10.8 L MCV 105.8 H RDW 17.0 H Immature Gran % (Auto) 0.7 H Neut % (Auto) 88.6 H Lymph % (Auto) 3.6 L Lymph # (Auto) 0.49 L [place] # (Auto) 0.96 H Immature Gran # 0.09 H Absolute Neutrophils 12.32 H POC pH 7.29 L POC pCO2 70.5 H* POC pO2 126 H POC HCO3 34.0 H POC Total CO2 36.0 H POC ABG Base Excess 7.0 H Hgb O2 Saturation 98.0 H Glucose 140 H Total Protein 5.3 L Globulin 1.7 L 02/03/22 02/03/22 09:05 09:05 WBC 11.5 H RBC 3.48 L Hgb MCV 104.0 H RDW 17.7 H Immature Gran % (Auto) 1.1 H Neut % (Auto) Lymph % (Auto) 13.8 L Lymph # (Auto) [place] # (Auto) Immature Gran # 0.13 H Absolute Neutrophils 8.93 H POC pH POC pCO2 POC pO2 POC HCO3 POC Total CO2 POC ABG Base Excess Hgb O2 Saturation Glucose 120 H Total Protein 5.3 L Globulin 2.0 L Meds: Medications Acetaminophen (Acetaminophen 650 Mg Supp.Rect) 650 mg PA Q4-6HP PRN; Protocol PRN Reason: PAIN/FEVER > 101 Albuterol Sulfate (Albuterol Sulfate 200 Puff Inhaler) 2 puff INH Q4HP PRN PRN Reason: Shortness Of Breath Diphenhydramine HCl (Diphenhydramine 12.5 Mg/5 Ml Oral.Mary) 25 mg PO Q4HP PRN PRN Reason: Allergy Symptoms Piperacillin Sod/Tazobactam (Sod 3.375 gm/ Dextrose) 50 mls @ 100 mls/hr IV Q8H [facility]; Protocol Levalbuterol HCl (Levalbuterol 1.25 Mg/3 Ml Ampul.Neb) 1.25 mg NEB Q2HP PRN PRN Reason: Shortness Of Breath Last Admin: 02/05/22 11:08 Dose: 1.25 mg Documented by: Metoprolol Tartrate (Metoprolol Tartrate 50 Mg Tablet) 75 mg PO BID [facility] Metoprolol Tartrate (Metoprolol Tartrate 5 Mg/5 Ml Vial) 5 mg IV Q5M PRN PRN Reason: Tachyarrhythmias Stop: 02/06/22 09:56 Ondansetron HCl (Ondansetron 4 Mg Odt Tablet) 4 mg SL Q4HP PRN PRN Reason: Nausea And Vomiting A/P Assessment and plan (1) CHF (congestive heart failure): Status: Acute (2) Atrial fibrillation with rapid ventricular response: Status: Acute (3) Compression fracture of lumbar vertebra: Status: Acute (4) GERD (gastroesophageal reflux disease): Status: Chronic Qualifiers: Esophagitis presence: without esophagitis Qualified Code(s): K21.9 - Gastro-esophageal reflux disease without esophagitis (5) COPD (chronic obstructive pulmonary disease): Status: Chronic Qualifiers: COPD type: unspecified COPD Qualified Code(s): J44.9 - Chronic obstructive pulmonary disease, unspecified; J44.9 - Chronic obstructive pulmonary disease, unspecified; J44.9 - Chronic obstructive pulmonary disease, unspecified; J44.9 - Chronic obstructive pulmonary disease, unspecified (6) Hypertension: Status: Chronic Qualifiers: Hypertension type: essential hypertension Qualified Code(s): I10 - Essential (primary) hypertension; I10 - Essential (primary) hypertension; I10 - Essential (primary) hypertension (7) Sleep apnea: Status: Chronic Qualifiers: Sleep apnea type: obstructive Qualified Code(s): G47.33 - Obstructive sleep apnea (adult) (pediatric); G47.33 - Obstructive sleep apnea (adult) (pediatric) (8) HAP (hospital-acquired pneumonia): Status: Acute Narrative A/P Narrative: Assessment and Plans: 1. Multiple lumbar compression fracture secondary to osteoporosis: Yesterday afternoon family decided to switch patient is to comfort care with home hospice. She was to be discharged home with home hospice but ENT could not take the patient with CPAP BiPAP and being comatose. This morning jony nged his mind and he wanted curative intentions again with the intentions to be consider for vertebroplasty next Tuesday. He also request the patient to be seen by wash test checker. I told her that is not going to be making much difference and also is not feasible for the same reason that she could not be discharged home yesterday. Chest x-ray yesterday showing right lower lobe pneumonia versus atelectasis. wants patient is to be started on antibiotics to cover for the possibility of the pneumonia. Dilaudid IV PRN severe pain Will touch base with Dr. Pineda next week to review patient's candidacy for vertebroplasty 2. h/o CHF: CT angiogram of the chest to rule out pulmonary embolism as a cause of increased work of breathing--->negative for pulmonary embolism 3. h/o COPD: DuoNEB NEB PRN wheezing Continue CPAP/BiPAP for ventilator support 4. Permanent atrial fibrillation: Metoprolol tartrate 75mg p.o. twice daily Lopressor IV PRN HR>120bpm Currently rate controlled Resume Eliquis 5. YELITZA on BiPAP: Continue CPAP/BiPAP for ventilator support 6. Essential hypertension: Metoprolol tartrate 75mg p.o. twice daily Lisinopril Hold Aldactone, but also saline lock due to h/o CHF 7. GERD: IV Protonix 8. Healthcare associated pneumonia: DDx: atelectasis Blood culture cbc w/ auto diff in the morning to trend WBC Zosyn BiPAP/CPAP for ventilator support GI ppx: IV Protonix DVT ppx: Eliquis Code statu: DNI Prognosis: Poor Disposition: Inpatient med surg, will continue to touch base with family regarding prognosis and goal of care Time Spent With Patient Time: Total time spent is greater than 50% in coordination of care (as documented) at patient's floor/unit and/or counseling patient: Total time spent with greater than 50% in coordination of care (as documented) at patient's floor/unit and/or counseling patient:: 35 - 50 minutes QUALITY VTE Deep Vein Thrombosis/Pulmonary Embolism Present on Admission: No
[2022-02-06] MEDS ORDERED: LORazepam 2 MG/ML VIAL IV PRN (09:39)
[2022-02-06] MEDS: IPRATROPIUM/ALBUTEROL 3 ML AMPUL.NEB NEB SCH ×4 (11:03→22:49)
[2022-02-06] MEDS: PIPERACILLIN SODIUM/TAZOBACTAM 3.375 GM in DEXTROSE 5% IN WATER 50 ML IV SCH ×3 (11:32→23:37)
[2022-02-06] MEDS: DEXTROSE 5%-NS 1,000 ML IV SCH ×2 (11:32→23:40)
[2022-02-06] MEDS: HYDROmorphone 0.5 MG/0.5 ML SYRINGE IV PRN ×3 (16:37→23:28)
[2022-02-06] MEDS: METOPROLOL TARTRATE 5 MG/5 ML VIAL IV PRN ×2 (20:50→23:27)
[2022-02-06] MEDS: METOPROLOL TARTRATE 50 MG TABLET PO SCH (20:54)
[2022-02-06] MEDS ORDERED: METOPROLOL TARTRATE 5 MG/5 ML VIAL IV ONE ×2 (20:58→23:30)
[2022-02-07] MEDS: HYDROmorphone 0.5 MG/0.5 ML SYRINGE IV PRN ×3 (02:00→09:08)
[2022-02-07] MEDS ORDERED: METOPROLOL TARTRATE 5 MG/5 ML VIAL IV ONE (02:20)
[2022-02-07] MEDS: IPRATROPIUM/ALBUTEROL 3 ML AMPUL.NEB NEB SCH ×6 (04:04→23:00)
[2022-02-07] MEDS: PIPERACILLIN SODIUM/TAZOBACTAM 3.375 GM in DEXTROSE 5% IN WATER 50 ML IV SCH (05:46)
[2022-02-07 06:27] LABS: Basophils # (Auto) 0.02 K/mcL (0.00-0.30); Basophils % (Auto) 0.3 % (0.0-2.0); Eosinophils # (Auto) 0.04 K/mcL (0.00-0.70); Eosinophils % (Auto) 0.5 % (0.0-7.0); Hematocrit 33.6 % (34.1-44.9); Hemoglobin 10.2 g/dL (11.2-15.7); Lymphocytes # (Auto) 0.44 K/mcL (1.50-4.80); Mean Corpuscular HGB Conc 30.4 g/dL (31.0-36.0); Mean Platelet Volume 9.1 fL (7.4-10.4); Monocytes # (Auto) 0.59 K/mcL (0.10-0.90); Neutrophils % (Auto) 84.4 % (38.0-78.0); Platelet Count 193 K/mcL (140-440); RBC 3.17 M/mcL (3.59-5.38); Red Cell Distribution Width 16.5 % (11.5-14.5); WBC 7.4 K/mcL (4.5-11.0)
[2022-02-07 06:49] LABS: ALT/SGPT 21 U/L (<40); AST/SGOT 12 U/L (<32); Albumin 2.8 gm/dL (3.2-5.2); Albumin/Globulin Ratio 1.5 (1.0-2.3); Alkaline Phosphatase 61 U/L (39-117); Bilirubin,Total 0.7 mg/dL (0.1-1.0); Blood Urea Nitrogen 17 mg/dL (8-23); Calcium 8.7 mg/dL (8.6-10.4); Carbon Dioxide 33 mmol/L (22-30); Chloride 111 mmol/L (96-108); Globulin 1.9 gm/dL (2.2-3.7); Glomerular Filtration Rate 82; Glucose 190 mg/dL (70-105)
[2022-02-07] MEDS ORDERED: LISINOPRIL 20 MG TABLET PO SCH (09:00)
[2022-02-07] MEDS: METOPROLOL TARTRATE 50 MG TABLET PO SCH (09:01)
--- NOTE | 2022-02-07 10:50 | Discharge Summary ---
Discharge Provider Provider IMPORTANT FOLLOW-UP INFORMATION FOR PCP: Patient information: Note initiated : 02/07/22 at 10:42 am Service Date, if different from initiated Date: [] Patient: Renay Mata 81 y/o F admitted on 02/03/22 for back pain. Chief Complaint: [] Date of admission: 02/03/22 09:31 Discharge date: 02/07/22 Primary care physician: Santosh Higginbotham MD Attending physician on admission: Panda Hamron Consults: 02/02/22 Consult to Physician [CONS] Stat Comment: Consulting Provider: Panda Harmon Reason For Exam: Physician to Consult 02/02/22 15:55 Consult to Physician [CONS] Routine Comment: Consulting Provider: Antonio Vega Reason For Exam: Physician to Consult Consult to Physician [CONS] Routine Comment: Consulting Provider: Kadeem Acosta Reason For Exam: Physician to Consult Attending physician on discharge: Panda Harmon COURSE Hospital Course Hospital course: History of present illness: Ms. Mata is a 81 year old F history of osteoporosis with multiple lumbar spinal compression fracture, CHF, COPD, atrial fibrillation, essential hypertensions, GERD, obstructive sleep apnea on BiPAP, presenting with chronic back pain. She was supposed to have an appointment with Dr. Pineda anesthesiologist for vertebroplasty, where he thought that the patient was too dehydrated and was in a fair best shape to receive the procedures. Instead, he referred patients to our ED for further evaluations. He would like the patient to be rehydrated and for better pain control and have the procedures to be scheduled for potentially tomorrow. Patient is currently company of 10 out of 10 sharp constant lower back pain. She also is complaining of constipation with last bowel movement 2 days ago. She denies any difficulty urinating. She has a poor appetite and is also feeling generally weak. Labs within normal limits. A recent CT of the lumbar spine showing multiple lumbar spinal cord compression fractures. 02/03: Increased work of breathing this morning. Patient was saturating in the 50s on 3 L of oxygen's. We increased her oxygen to 15L/min and her oxygen saturations back to the mid 90s. Subjective ROS not obtained due to patient's clinical situations. Will order ABG and CT angiogram of the chest to rule out pulmonary embolism as a cause of increased work of breathing. We will postpone the vertebroplasty to at least tomorrow. 02/04: Patient's developed A. fib with heart rate up to the 140s yesterday evening so I transferred the patient to ICU and placed the order for Cardizem drip but the drip was never started she got her heart rate controlled it with IV Cardizem pushes. Patient is continue to be on BiPAP last night and this morning during the day. With she had a small bowel movement earlier during the morning but she is still complaining of feeling constipated. She is also complaining of moderate shortness of breath with respiratory wheezings. She is also c omplaining of severe back pain. I touched base with pain surgeon Dr. Pineda, who stated that the patient's need to be off the BiPAP during the day because she need to be in the prone positions during and after her surgery. She also need to be discharged from inpatient service before she can have her procedures done. Physical therapy pending but cannot take place until after the surgery. Continue to offer pain management for the time being while trying to wean the patient off BiPAP. I will also order a KUB to rule out any worsening ileus or even small bowel obstructions. 02/05: ABG: pH 7.29 pCO2 70.5, pO2 126 HCO3 34. Patient is very lethargic this morning and she is BiPAP dependent. Feel like patient is not ready for vertebroplasty so it would be postponed. We will start patients on Eliquis. We will touch base with family regarding prognosis and goals of care. 02/06: Yesterday afternoon family decided to switch patient is to comfort care with home hospice. She was to be discharged home with home hospice but ENT could not take the patient with CPAP BiPAP and being comatose. This morning changed his mind and he wanted curative intentions again with the intentions to be consider for vertebroplasty next Tuesday. He also request the patient to be seen by inner tube cutter. I told her that is not going to be making much difference and also is not feasible for the same reason that she could not be discharged home yesterday. Chest x-ray yesterday showing right lower lobe pneumonia versus atelectasis. wants patient is to be started on antibiotics to cover for the possibility of the pneumonia. Will change from comfort care only to curative intentions with DNI DNR. Insert IV access. N.p.o. for the time being due to degree of alertness. D5 NS at 75 cc/h. Dilaudid and Ativan IV as needed pain and anxiety, respectively. IV Zosyn for coverage of potential hospital pneumonia. Continue CPAP/BiPAP for ventilation support. 02/07: Family decided to take patient home with home hospice. Discharge diagnosis: end stage COPD, lumbar compression fracture Time Spent with Patient Time attestation: Total time spent providing and/or coordinating discharge services: Time spent: Greater than 30 minutes EXAM Constitutional Vitals: Temp Pulse Resp BP Pulse Ox 36.3 C 92 H 20 178/78 99 02/07/22 07:52 02/07/22 06:50 02/07/22 07:52 02/07/22 07:52 02/07/22 08:45 General appearance: disheveled and moderate distress Head Head exam: Present atraumatic and normocephalic Eye Eye exam: Present EOMI and PERRL ENT ENT exam: Present mucous membranes moist, normal exam and normal external ear exam Additional comments: CPAP/BiPAP in place Neck Neck exam: Present normal inspection; Absent lymphadenopathy, tenderness or thyromegaly Respiratory Respiratory exam: Present decreased breath sounds; Absent accessory muscle use, respiratory distress or wheezes Cardiovascular Cardiovascular exam: Present normal rate and rhythm; Absent JVD GI/Abdominal GI/Abdominal exam: Present normal bowel sounds and soft; Absent organomegaly or tenderness Additional comments: Hallman catheter in place Extremities Exam Extremities exam: Present full ROM, normal capillary refill and normal inspection; Absent tenderness Back Exam Back exam: Present vertebral tenderness Neurological Exam Neurological exam: Present alert, CN II-XII intact and oriented X3; Absent motor sensory deficit Psychiatric Psychiatric exam: Present normal affect and normal mood; Absent anxious or depressed Skin Skin exam: Present dry and intact Discharge Data Data Completed and Pending Labs on day of discharge: Labs from last 24 hours 02/07/22 02/07/22 05:21 05:20 WBC 7.4 RBC 3.17 L Hgb 10.2 L Hct 33.6 L MCV 106.0 H MCH 32.2 MCHC 30.4 L RDW 16.5 H Plt Count 193 MPV 9.1 Immature Gran % (Auto) 0.8 H Neut % (Auto) 84.4 H Lymph % (Auto) 6.0 L [place] % (Auto) 8.0 Eos % (Auto) 0.5 Baso % (Auto) 0.3 Lymph # (Auto) 0.44 L [place] # (Auto) 0.59 Eos # (Auto) 0.04 Baso # (Auto) 0.02 Immature Gran # 0.06 H Absolute Neutrophils 6.29 Sodium 148 H Potassium 3.4 Chloride 111 H Carbon Dioxide 33 H Anion Gap 4.0 L BUN 17 Creatinine 0.7 GFR Calculation 82 Glucose 190 H Calcium 8.7 Total Bilirubin 0.7 AST 12 ALT 21 Alkaline Phosphatase 61 Total Protein 4.7 L Albumin 2.8 L Globulin 1.9 L Albumin/Globulin Ratio 1.5 Preliminary micro results at discharge 02/06/22 10:05 Blood Culture - Preliminary Blood Discharge Plan Patient/Caregiver Discharge Instructions Activity: increase activity as tolerated Diet: Regular Diet Instructions: Hospice Care (GEN) Activity Restrictions/Additional Instructions: Your hosp[facility] care has been arranged with [facility]. You have been given hard copy prescriptions for hospice to use. Diet and Activity as tolerated. This discharge packet is provided to you to help keep you informed about your care. We want to ensure you get everything you need when you go home. You will also be receiving a call from us in a few days to follow up with you and see how you are doing since your discharge. This gives us a chance to listen to any concerns you maybe experiencing since you were discharged or any additional needs you may have, as well as providing us feedback on your care experience. We strive to always provide excellent care and thank you for your feedback and for choosing [facility]. Prescriptions: New baclofen 10 mg Tablet 10 mg PO Q6HP PRN (Reason: Muscle Spasticity) 30 Days 0RF diphenhydramine HCl [Diphedryl] 12.5 mg/5 mL Liquid 25 mg PO Q4HP PRN (Reason: Allergy Symptoms) 30 Days 0RF morphine [MS Contin] 30 mg tablet extended release 30 mg PO Q12H Qty: 30 0RF lorazepam [Ativan] 2 mg tablet 2 mg PO TID PRN (Reason: anxiety) Qty: 30 0RF Continued (DME) Nebulizer and supplies Qty: 1 0RF Rx Instructions: As directed (DME) Bipap mask and supplies Qty: 1 0RF Rx Instructions: As directed ipratropium-albuterol 0.5 mg-3 mg(2.5 mg base)/3 mL solution for nebulization See Rx Instructions .ROUTE .COMPLEX Qty: 1080 4RF Dose Instruction: USE 3 ML INHALATIONS FOUR TIMES DAILY NEEDED Rx Instructions: USE 3 ML INHALATIONS FOUR TIMES DAILY NEEDED (DME) Home care Hospital bed See Rx Instructions .Route .MEDSUPPLY Qty: 1 0RF Hold Instructions: PT was able to get one Rx Instructions: As directed for 6 weeks albuterol sulfate 90 mcg/actuation HFA aerosol inhaler 1 inh inhalation ONCE 0RF sennosides [Grace-luis] 8.6 mg Tablet 8.6 mg PO BID 0RF docusate sodium [Colace] 100 mg Capsule 100 mg PO BID 0RF Changed hydrocodone-acetaminophen 10-325 mg tablet 1 tab PO Q1 Qty: 60 0RF Discontinued Eliquis 5 mg tablet 5 mg PO BID 0RF prednisone 10 mg tablet See Rx Instructions PO QDAY 0RF Rx Instructions: 4 tabs PO daily prn spironolactone 25 mg tablet 50 mg PO QAM Qty: 180 4RF aspirin 81 mg tablet,delayed release (DR/EC) 81 mg PO QDAY 0RF calcitonin (salmon) 200 unit/actuation spray,non-aerosol 1 spray intranasal (ALT) ONCE Qty: 3.7 5RF metoprolol tartrate 50 mg tablet 1.5 tab PO BID 0RF Follow Up Plan Follow up with: Santosh Higginbotham MD [Primary Care Provider] - (Comfort Care; no appointment made See your PCP as needed) Patient Disposition: Hospice - Home Prognosis: Fair Rehab Potential: Undetermined I certify that the patient requires SNF services: No Overall status at discharge: patient is not back to baseline Discharge Orders: Discharge Order (Routine); Ordered 02/07/22 Ordered By: Panda MAYERS VTE Deep Vein Thrombosis/Pulmonary Embolism Present on Admission: No
[2022-02-07] MEDS ORDERED: morphine 4 MG/ML VIAL IV PRN (11:18)
[2022-02-07] MEDS ORDERED: ONDANSETRON 4 MG/2 ML VIAL IV PRN (11:18)
--- NOTE | 2022-02-07 11:22 | Internal Med Progress Note ---
SUBJECTIVE Subjective Patient information: Note initiated : 02/07/22 at 11:20 am Service Date, if different from initiated Date: [] Patient: Renay Mata a 81 y/o F admitted on 02/03/22 for back pain. Chief Complaint: [] Interval history: History of present illness: Ms. Mata is a 81 year old F history of osteoporosis with multiple lumbar spina l compression fracture, CHF, COPD, atrial fibrillation, essential hypertensions, GERD, obstructive sleep apnea on BiPAP, presenting with chronic back pain. She was supposed to have an appointment with Dr. Pineda anesthesiologist for vertebroplasty, where he thought that the patient was too dehydrated and was in a fair best shape to receive the procedures. Instead, he referred patients to our ED for further evaluations. He would like the patient to be rehydrated and for better pain control and have the procedures to be scheduled for potentially tomorrow. Patient is currently company of 10 out of 10 sharp constant lower back pain. She also is complaining of constipation with last bowel movement 2 days ago. She denies any difficulty urinating. She has a poor appetite and is also feeling generally weak. Labs within normal limits. A recent CT of the lumbar spine showing multiple lumbar spinal cord compression fractures. 02/03: Increased work of breathing this morning. Patient was saturating in the 50s on 3 L of oxygen's. We increased her oxygen to 15L/min and her oxygen saturations back to the mid 90s. Subjective ROS not obtained due to patient's clinical situations. Will order ABG and CT angiogram of the chest to rule out pulmonary embolism as a cause of increased work of breathing. We will postpone the vertebroplasty to at least tomorrow. 02/04: Patient's developed A. fib with heart rate up to the 140s yesterday evening so I transferred the patient to ICU and placed the order for Cardizem drip but the drip was never started she got her heart rate controlled it with IV Cardizem pushes. Patient is continue to be on BiPAP last night and this morning during the day. With she had a small bowel movement earlier during the morning but she is still complaining of feeling constipated. She is also complaining of moderate shortness of breath with respiratory wheezings. She is also complaining of severe back pain. I touched base with pain surgeon Dr. Pineda, who stated that the patient's need to be off the BiPAP during the day because she need to be in the prone positions during and after her surgery. She also need to be discharged from inpatient service before she can have her procedures done. Physical therapy pending but cannot take place until after the surgery. Continue to offer pain management for the time being while trying to wean the patient off BiPAP. I will also order a KUB to rule out any worsening ileus or even small bowel obstructions. 02/05: ABG: pH 7.29 pCO2 70.5, pO2 126 HCO3 34. Patient is very lethargic this morning and she is BiPAP dependent. Feel like patient is not ready for vertebroplasty so it would be postponed. We will start patients on Eliquis. We will touch base with family regarding prognosis and goals of care. 02/06: Yesterday afternoon family decided to switch patient is to comfort care with home hospice. She was to be discharged home with home hospice but ENT could not take the patient with CPAP BiPAP and being comatose. This morning changed his mind and he wanted curative intentions again with the intentions to be consider for vertebroplasty next Tuesday. He also request the patient to be seen by healthcare consultant. I told her that is not going to be making much difference and also is not feasible for the same reason that she could not be discharged home yesterday. Chest x-ray yesterday showing right lower lobe pneumonia versus atelectasis. wants patient is to be started on antibiotics to cover for the possibility of the pneumonia. Will change from comfort care only to curative intentions with DNI DNR. Insert IV access. N.p.o. for the time being due to degree of alertness. D5 NS at 75 cc/h. Dilaudid and Ativan IV as needed pain and anxiety, respectively. IV Zosyn for coverage of potential hospital pneumonia. Continue CPAP/BiPAP for ventilation support. 02/07: Family at the bedside decided to switch back to comfort care with home hospice. Cannot discharge home with home hospice because hospice pharmacy is closed. We will keep the patient in-house for continued comfort care and to order home hospice supplies and set up already. Constitutional Vitals: Vital Signs Temp Pulse Resp BP Pulse Ox 36.3 C 88 22 178/78 98 02/07/22 07:52 02/07/22 11:14 02/07/22 11:14 02/07/22 07:52 02/07/22 11:14 Period Temp Pulse Resp BP Sys/Urban Pulse Ox Last 24 Hr 36.2 C-37.3 C 85-137 20-40 109-178/61-80 91-100 Intake and Output 02/06/22 02/07/22 02/07/22 21:59 05:59 13:59 Intake Total 50 1050 50 Output Total 250 Balance 50 800 50 Weight 66.905 kg Intake & Output: Intake & Output 02/06/22 02/07/22 02/07/22 21:59 05:59 13:59 Intake Total 50 1050 50 Output Total 250 Balance 50 800 50 Weight 66.905 kg Intake: IV 50 1050 50 Dextrose 5%-Ns IV Solution 1, 1000 000 ml @ 75 mls/hr IV .[id number] PO Rx#:[id number] Zosyn 3.375 gm In Dextrose 5% 50 50 50 in Water 50 ml @ 100 mls/hr IV Q8H PO Rx#:[id number] Oral 0 Output: Urine Catheter Amount 250 Other: Meal Dinner Percent of Meal Consumed npo Feeding Ability Total Assistance Urine Appearance Sediment Uretheral (Hallman) Sediment Sediment Urine Color Dark Promise Uretheral (Hallman) Light Promise Light Promise Urine Odor Strong Uretheral (Hallman) Normal Stool Size Smear Stool Color Brown # of times incontinent of 1 Bowels General appearance: disheveled and moderate distress Exam: lethargic Head Head exam: Present atraumatic and normal inspection Eye Eye exam: Present normal appearance ENT ENT exam: Present mucous membranes moist, normal exam and normal external ear exam Additional comments: CPAP in place Neck Neck exam: Present normal inspection Respiratory Respiratory exam: Present decreased breath sounds Cardiovascular Cardiovascular exam: Present normal rate and rhythm GI/Abdominal GI/Abdominal exam: Present normal bowel sounds Additional comments: Hallman in place Back Exam Back exam: Present vertebral tenderness; Absent normal inspection Neurological Exam Neurological exam: Present altered; Absent oriented X3 Additional comments: lethargic Skin Skin exam: Present intact and warm OBJ DATA Labs CBC & Chem 7: 02/07/22 05:21 02/07/22 05:20 Labs: Abnormal Lab Results 02/07/22 02/07/22 02/05/22 05:21 05:20 08:57 WBC RBC 3.17 L Hgb 10.2 L Hct 33.6 L MCV 106.0 H MCHC 30.4 L RDW 16.5 H Immature Gran % (Auto) 0.8 H Neut % (Auto) 84.4 H Lymph % (Auto) 6.0 L Lymph # (Auto) 0.44 L Tate # (Auto) Immature Gran # 0.06 H Absolute Neutrophils POC pH POC pCO2 POC pO2 POC HCO3 POC Total CO2 POC ABG Base Excess Hgb O2 Saturation Sodium 148 H Chloride 111 H Carbon Dioxide 33 H Anion Gap 4.0 L Glucose 190 H 140 H Total Protein 4.7 L 5.3 L Albumin 2.8 L Globulin 1.9 L 1.7 L 02/05/22 02/05/22 08:57 06:39 WBC 13.8 H RBC 3.28 L Hgb 10.8 L Hct MCV 105.8 H MCHC RDW 17.0 H Immature Gran % (Auto) 0.7 H Neut % (Auto) 88.6 H Lymph % (Auto) 3.6 L Lymph # (Auto) 0.49 L Tate # (Auto) 0.96 H Immature Gran # 0.09 H Absolute Neutrophils 12.32 H POC pH 7.29 L POC pCO2 70.5 H* POC pO2 126 H POC HCO3 34.0 H POC Total CO2 36.0 H POC ABG Base Excess 7.0 H Hgb O2 Saturation 98.0 H Sodium Chloride Carbon Dioxide Anion Gap Glucose Total Protein Albumin Globulin Meds: Medications Acetaminophen (Acetaminophen 650 Mg Supp.Rect) 650 mg ID Q4-6HP PRN; Protocol PRN Reason: PAIN/FEVER > 101 Albuterol Sulfate (Albuterol Sulfate 200 Puff Inhaler) 2 puff INH Q4HP PRN PRN Reason: Shortness Of Breath Albuterol/Ipratropium (Ipratropium/Albuterol 3 Ml Ampul.Neb) 3 ml NEB Q4HRT PO Last Admin: 02/07/22 11:12 Dose: 3 ml Documented by: Diphenhydramine HCl (Diphenhydramine 12.5 Mg/5 Ml Oral.Mary) 25 mg PO Q4HP PRN PRN Reason: Allergy Symptoms Hydromorphone HCl (Hydromorphone 0.5 Mg/0.5 Ml Syringe) 0.5 mg IV Q2HP PRN; Protocol PRN Reason: Per Pain Protocol Last Admin: 02/07/22 09:08 Dose: 0.5 mg Documented by: Hydromorphone HCl (Hydromorphone 1 Mg/Ml Syringe) 0.5 - 2 mg IV Q2HP PRN; Protocol PRN Reason: Per Pain Protocol Piperacillin Sod/Tazobactam (Sod 3.375 gm/ Dextrose) 50 mls @ 100 mls/hr IV Q8H [facility]; Protocol Last Infusion: 02/07/22 06:50 Dose: Infused Documented by: Dextrose/Sodium Chloride (Dextrose 5%-Ns Iv Solution) 1,000 mls @ 75 mls/hr IV .[id number] [facility] Last Infusion: 02/07/22 02:02 Dose: Infused Documented by: Levalbuterol HCl (Levalbuterol 1.25 Mg/3 Ml Ampul.Neb) 1.25 mg NEB Q2HP PRN PRN Reason: Shortness Of Breath Last Admin: 02/05/22 11:08 Dose: 1.25 mg Documented by: Lisinopril (Lisinopril 20 Mg Tablet) 20 mg PO DAILY [facility] Last Admin: 02/07/22 09:01 Dose: 20 mg Documented by: Lorazepam (Lorazepam 2 Mg/Ml Vial) 0.5 mg IV Q4-6HP PRN PRN Reason: ANXIETY/SEDATION Metoprolol Tartrate (Metoprolol Tartrate 50 Mg Tablet) 75 mg PO BID [facility] Last Admin: 02/07/22 09:01 Dose: 75 mg Documented by: Metoprolol Tartrate (Metoprolol Tartrate 5 Mg/5 Ml Vial) 5 mg IV Q5M PRN PRN Reason: Tachyarrhythmias Last Admin: 02/07/22 02:12 Dose: 5 mg Documented by: Morphine Sulfate (Morphine 4 Mg/Ml Vial) 2 - 6 mg IV Q1HP PRN; Protocol PRN Reason: Per Pain Protocol Ondansetron HCl (Ondansetron 4 Mg Odt Tablet) 4 mg SL Q4HP PRN PRN Reason: Nausea And Vomiting Ondansetron HCl (Ondansetron 4 Mg/2 Ml Vial) 4 mg IV Q4HP PRN; Protocol PRN Reason: Nausea And Vomiting Sodium Chloride (0.9 % Sodium Chloride 10 Ml Syringe) 10 ml IV Q8 [facility] A/P Assessment and plan (1) CHF (congestive heart failure): Status: Acute (2) Atrial fibrillation with rapid ventricular response: Status: Acute (3) Compression fracture of lumbar vertebra: Status: Acute (4) GERD (gastroesophageal reflux disease): Status: Chronic Qualifiers: Esophagitis presence: without esophagitis Qualified Code(s): K21.9 - Gastro-esophageal reflux disease without esophagitis (5) COPD (chronic obstructive pulmonary disease): Status: Chronic Qualifiers: COPD type: unspecified COPD Qualified Code(s): J44.9 - Chronic obstructive pulmonary disease, unspecified; J44.9 - Chronic obstructive pulm onary disease, unspecified; J44.9 - Chronic obstructive pulmonary disease, unspecified; J44.9 - Chronic obstructive pulmonary disease, unspecified (6) Hypertension: Status: Chronic Qualifiers: Hypertension type: essential hypertension Qualified Code(s): I10 - Essential (primary) hypertension; I10 - Essential (primary) hypertension; I10 - Essential (primary) hypertension (7) Sleep apnea: Status: Chronic Qualifiers: Sleep apnea type: obstructive Qualified Code(s): G47.33 - Obstructive sleep apnea (adult) (pediatric); G47.33 - Obstructive sleep apnea (adult) (pediatric) (8) HAP (hospital-acquired pneumonia): Status: Acute Narrative A/P Narrative: Family at the bedside decided to switch back to comfort care with home hospice. Cannot discharge home with home hospice because hospice pharmacy is closed. We will keep the patient in-house for continued comfort care and to order home hospice supplies and set up already. Time Spent With Patient Time: Total time spent is greater than 50% in coordination of care (as documented) at patient's floor/unit and/or counseling patient: Total time spent with greater than 50% in coordination of care (as documented) at patient's floor/unit and/or counseling patient:: 35 - 50 minutes QUALITY VTE Deep Vein Thrombosis/Pulmonary Embolism Present on Admission: No
[2022-02-07] MEDS: HYDROmorphone 1 MG/ML SYRINGE IV PRN ×4 (12:32→23:12)
[2022-02-07] MEDS: 0.9 % SODIUM CHLORIDE 10 ML SYRINGE IV SCH ×2 (15:45→22:03)
[2022-02-07] MEDS ORDERED: 0.9 % SODIUM CHLORIDE 1,000 ML IV SCH (16:45)
[2022-02-07] MEDS: DEXTROSE 5%-NS 1,000 ML IV SCH (17:02)
[2022-02-07] MEDS: LORazepam 2 MG/ML VIAL IV PRN (19:56)
[2022-02-08] MEDS: HYDROmorphone 1 MG/ML SYRINGE IV PRN ×2 (02:42→08:34)
[2022-02-08] MEDS: IPRATROPIUM/ALBUTEROL 3 ML AMPUL.NEB NEB SCH ×2 (04:43→07:22)
[2022-02-08] MEDS: 0.9 % SODIUM CHLORIDE 10 ML SYRINGE IV SCH (04:48)
[2022-02-08] MEDS: LORazepam 2 MG/ML VIAL IV PRN (09:44)
--- NOTE | 2022-02-08 11:29 | Discharge Summary ---
Discharge Provider Provider IMPORTANT FOLLOW-UP INFORMATION FOR PCP: Patient information: Note initiated : 02/08/22 at 11:26 am Service Date, if different from initiated Date: [] Patient: Renay Mata 81 y/o F admitted on 02/03/22 for back pain. Chief Complaint: [] Date of admission: 02/03/22 09:31 Discharge date: 02/08/22 Primary care physician: Santosh Higginbotham MD Attending physician on admission: Panda Harmon Consults: 02/02/22 Consult to Physician [CONS] Stat Comment: Consulting Provider: Panda Harmon Reason For Exam: Physician to Consult 02/02/22 15:55 Consult to Physician [CONS] Routine Comment: Consulting Provider: Antonio Vega Reason For Exam: Physician to Consult Consult to Physician [CONS] Routine Comment: Consulting Provider: Kadeem Acosta Reason For Exam: Physician to Consult Attending physician on discharge: Panda Harmon COURSE Hospital Course Hospital course: History of present illness: Ms. Mata is a 81 year old F history of osteoporosis with multiple lumbar spinal compression fracture, CHF, COPD, atrial fibrillation, essential hypertensions, GERD, obstructive sleep apnea on BiPAP, presenting with chronic back pain. She was supposed to have an appointment with Dr. Pineda anesthesiologist for vertebroplasty, where he thought that the patient was too dehydrated and was in a fair best shape to receive the procedures. Instead, he referred patients to our ED for further evaluations. He would like the patient to be rehydrated and for better pain control and have the procedures to be scheduled for potentially tomorrow. Patient is currently company of 10 out of 10 sharp constant lower back pain. She also is complaining of constipation with last bowel movement 2 days ago. She denies any difficulty urinating. She has a poor appetite and is also feeling generally weak. Labs within normal limits. A recent CT of the lumbar spine showing multiple lumbar spinal cord compression fractures. 02/03: Increased work of breathing this morning. Patient was saturating in the 50s on 3 L of oxygen's. We increased her oxygen to 15L/min and her oxygen saturations back to the mid 90s. Subjective ROS not obtained due to patient's clinical situations. Will order ABG and CT angiogram of the chest to rule out pulmonary embolism as a cause of increased work of breathing. We will postpone the vertebroplasty to at least tomorrow. 02/04: Patient's developed A. fib with heart rate up to the 140s yesterday evening so I transferred the patient to ICU and placed the order for Cardizem drip but the drip was never started she got her heart rate controlled it with IV Cardizem pushes. Patient is continue to be on BiPAP last night and this morning during the day. With she had a small bowel movement earlier during the morning but she is still complaining of feeling constipated. She is also complaining of moderate shortness of breath with respiratory wheezings. She is also c omplaining of severe back pain. I touched base with pain surgeon Dr. Pineda, who stated that the patient's need to be off the BiPAP during the day because she need to be in the prone positions during and after her surgery. She also need to be discharged from inpatient service before she can have her procedures done. Physical therapy pending but cannot take place until after the surgery. Continue to offer pain management for the time being while trying to wean the patient off BiPAP. I will also order a KUB to rule out any worsening ileus or even small bowel obstructions. 02/05: ABG: pH 7.29 pCO2 70.5, pO2 126 HCO3 34. Patient is very lethargic this morning and she is BiPAP dependent. Feel like patient is not ready for vertebroplasty so it would be postponed. We will start patients on Eliquis. We will touch base with family regarding prognosis and goals of care. 02/06: Yesterday afternoon family decided to switch patient is to comfort care with home hospice. She was to be discharged home with home hospice but ENT could not take the patient with CPAP BiPAP and being comatose. This morning changed his mind and he wanted curative intentions again with the intentions to be consider for vertebroplasty next Tuesday. He also request the patient to be seen by examination scorer. I told her that is not going to be making much difference and also is not feasible for the same reason that she could not be discharged home yesterday. Chest x-ray yesterday showing right lower lobe pneumonia versus atelectasis. wants patient is to be started on antibiotics to cover for the possibility of the pneumonia. Will change from comfort care only to curative intentions with DNI DNR. Insert IV access. N.p.o. for the time being due to degree of alertness. D5 NS at 75 cc/h. Dilaudid and Ativan IV as needed pain and anxiety, respectively. IV Zosyn for coverage of potential hospital pneumonia. Continue CPAP/BiPAP for ventilation support. 02/07: Family at the bedside decided to switch back to comfort care with home hospice. Cannot discharge home with home hospice because hospice pharmacy is closed. We will keep the patient in-house for continued comfort care and to order home hospice supplies and set up already. 02/08: Discharge home with home hospice Discharge diagnosis: end stage COPD, multiple spinal compression fractures Time Spent with Patient Time attestation: Total time spent providing and/or coordinating discharge services: Time spent: Less than 30 minutes EXAM Constitutional Vitals: Temp Pulse Resp BP Pulse Ox 36.3 C 110 H 16 178/78 94 02/07/22 07:52 02/08/22 07:14 02/08/22 07:14 02/07/22 07:52 02/08/22 08:00 General appearance: mild distress; no cooperative Head Head exam: Present atraumatic and normocephalic Eye Eye exam: Present EOMI and PERRL ENT ENT exam: Present mucous membranes moist, normal exam and normal external ear exam Additional comments: CPAP/BiPAP in place Neck Neck exam: Present normal inspection; Absent lymphadenopathy, tenderness or thyromegaly Respiratory Respiratory exam: Present decreased breath sounds; Absent accessory muscle use, respiratory distress or wheezes Cardiovascular Cardiovascular exam: Present normal rate and rhythm; Absent JVD GI/Abdominal GI/Abdominal exam: Present normal bowel sounds and soft; Absent organomegaly or tenderness Extremities Exam Extremities exam: Present full ROM, normal capillary refill and normal inspection; Absent tenderness Back Exam Back exam: Present vertebral tenderness Neurological Exam Neurological exam: Present altered and CN II-XII intact; Absent alert, motor sensory deficit or oriented X3 Additional comments: lethargic Psychiatric Psychiatric exam: Present normal affect and normal mood; Absent anxious or depressed Skin Skin exam: Present dry and intact Discharge Data Data Completed and Pending Labs on day of discharge: Preliminary micro results at discharge 02/06/22 10:05 Blood Culture - Preliminary Blood Discharge Plan Patient/Caregiver Discharge Instructions Activity: increase activity as tolerated Diet: Regular Diet Instructions: Hospice Care (GEN) Activity Restrictions/Additional Instructions: Hospice care has been arranged with [facility]. They will be in contact with the family Diet and Activity as tolerated. This discharge packet is provided to you to help keep you informed about your care. We want to ensure you get everything you need when you go home. You will also be receiving a call from us in a few days to follow up with you and see how you are doing since your discharge. This gives us a chance to listen to any concerns you maybe experiencing since you were discharged or any additional needs you may have, as well as providing us feedback on your care experience. We strive to always provide excellent care and thank you for your feedback and for choosing [facility]. Prescriptions: New baclofen 10 mg Tablet 10 mg PO Q6HP PRN (Reason: Muscle Spasticity) 30 Days 0RF diphenhydramine HCl [Diphedryl] 12.5 mg/5 mL Liquid 25 mg PO Q4HP PRN (Reason: Allergy Symptoms) 30 Days 0RF morphine [MS Contin] 30 mg tablet extended release 30 mg PO Q12H Qty: 30 0RF lorazepam [Ativan] 2 mg tablet 2 mg PO TID PRN (Reason: anxiety) Qty: 30 0RF Continued (DME) Nebulizer and supplies Qty: 1 0RF Rx Instructions: As directed (DME) Bipap mask and supplies Qty: 1 0RF Rx Instructions: As directed ipratropium-albuterol 0.5 mg-3 mg(2.5 mg base)/3 mL solution for nebulization See Rx Instructions .ROUTE .COMPLEX Qty: 1080 4RF Dose Instruction: USE 3 ML INHALATIONS FOUR TIMES DAILY NEEDED Rx Instructions: USE 3 ML INHALATIONS FOUR TIMES DAILY NEEDED (DME) Home care Hospital bed See Rx Instructions .Route .MEDSUPPLY Qty: 1 0RF Hold Instructions: PT was able to get one Rx Instructions: As directed for 6 weeks albuterol sulfate 90 mcg/actuation HFA aerosol inhaler 1 inh inhalation ONCE 0RF sennosides [Grace-luis] 8.6 mg Tablet 8.6 mg PO BID 0RF docusate sodium [Colace] 100 mg Capsule 100 mg PO BID 0RF Changed hydrocodone-acetaminophen 10-325 mg tablet 1 tab PO Q1 Qty: 60 0RF Discontinued Eliquis 5 mg tablet 5 mg PO BID 0RF prednisone 10 mg tablet See Rx Instructions PO QDAY 0RF Rx Instructions: 4 tabs PO daily prn spironolactone 25 mg tablet 50 mg PO QAM Qty: 180 4RF aspirin 81 mg tablet,delayed release (DR/EC) 81 mg PO QDAY 0RF calcitonin (salmon) 200 unit/actuation spray,non-aerosol 1 spray intranasal (ALT) ONCE Qty: 3.7 5RF metoprolol tartrate 50 mg tablet 1.5 tab PO BID 0RF Follow Up Plan Patient Disposition: Hospice - Home Prognosis: Fair Rehab Potential: Undetermined I certify that the patient requires SNF services: No Overall status at discharge: patient is not back to baseline Discharge Orders: Discharge Order (Routine); Ordered 02/08/22 Ordered By: Panda Harmon Discharge Comment: home with hospice,via non emergent ambulance QUALITY VTE Deep Vein Thrombosis/Pulmonary Embolism Present on Admission: No
--- NOTE | 2022-02-12 10:25 | EKG ---
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
== END 2022-02-08 10:00 | disposition hospice, home (50) | DRG 190 ==
LOC: MEDSUR 12:50 → ED 12:50 → MEDSUR 15:34 → OBSVTOIN 02-03 09:31 → INTOOBSV 02-03 09:31 → ICU 02-03 09:37 → MEDSUR 02-05 14:50
PROVIDERS: ADMIT Internal Medicine; ATTEND Internal Medicine